=== PATIENT | female | born 1975 | race Caucasian/White ===

== ENCOUNTER 2017-02-22 19:12 | Inpatient (IN) | payer OTHER ==
[2017-02-22 19:19] VITALS: BMI 34.0
[2017-02-22] MEDS ORDERED: ONDANSETRON 4 MG/2 ML VIAL IVPUSH ONE (20:09)
[2017-02-22] MEDS ORDERED: ONDANSETRON 4 MG/2 ML VIAL ONE (20:32)
[2017-02-22 20:56] LABS: URINE APPEARANCE SLCLOUDY; URINE BILIRUBIN NEGATIVE (NEGATIVE); URINE COLOR LTYELLOW; URINE GLUCOSE (UA) 3+ (NEGATIVE); URINE KETONE NEGATIVE (NEGATIVE); URINE NITRITE NEGATIVE (NEGATIVE); URINE UROBILINOGEN NEGATIVE E.U./dl (0.2-1.0)
[2017-02-22 20:58] LABS: BASOPHIL 0.4 % (0-2.0); EOSINOPHIL 0.1 % (0-4.5); MCH 28.4 pg (25.7-33.7); MEAN CELL VOLUME 83.3 fl (80-96); NEUTROPHILS 91.2 % (42.8-82.8); PLATELET COUNT 227 K/MM3 (134-434); RDW 13.3 % (11.6-15.6); WHITE BLOOD COUNT 13.1 K/mm3 (4.0-10.0)
--- NOTE | 2017-02-22 21:11 | PDOC ---
History of Present Illness - History of Present Illness Initial Comments: 02/22/17 22:59 Patient is a 42 year old female with no significant medical hx who is presenting to the ED with one week of suprapubic pain, fever, and hematuria. The patient complains of suprapubic pain with radiation to her right flank. She has had progressive abdominal pain that is worse in the suprapubic region but has become more diffuse. She also had an episode of vomiting while in the ED. The patient is diaphoretic during interview. The patient recently was started on Macrobid by PCP for UTI. Surgical Hx: Hysterectomy PCP: Hadley Monge MD <Nany Jain - Last Filed: 02/22/17 22:59> <Lolita Corea - Last Filed: 02/23/17 02:03> - General Chief Complaint: Pain Stated Complaint: COLD SYMPTOMS Time Seen by Provider: 02/22/17 19:25 Past History <Nany Jain - Last Filed: 02/22/17 22:59> - Past Medical History Asthma: Yes - Psycho/Social/Smoking Cessation Hx Suicidal Ideation: No Smoking History: Never smoked <Lolita Corea - Last Filed: 02/23/17 02:03> - Past Medical History Allergies/Adverse Reactions: Allergies Allergy/AdvReac Type Severity Reaction Status Date / Time No Known Allergies Allergy Verified 02/22/17 19:15 Home Medications: Ambulatory Orders Nitrofurantoin Monohyd/M-Cryst [Macrobid -] 100 mg PO BID 02/22/17 Review of Systems - Review of Systems Comments:: 02/22/17 23:02 CONSTITUTIONAL: Present: fever Absent: chills, diaphoresis, generalized weakness, malaise, loss of appetite HEENT: Absent: rhinorrhea, nasal congestion, throat pain, throat swelling, difficulty swallowing, mouth swelling, ear pain, eye pain, visual changes CARDIOVASCULAR: Absent: chest pain, syncope, palpitations, irregular heart rate, lightheadedness , peripheral edema RESPIRATORY: Absent: cough, shortness of breath, dyspnea with exertion, orthopnea, wheezing, stridor, hemoptysis GASTROINTESTINAL: Present: abdominal pain, nausea, vomiting Absent: abdominal distension, diarrhea, constipation, melena, hematochezia GENITOURINARY: Present: hematuria, flank pain Absent: dysuria, frequency, urgency, hesitancy, genital pain MUSCULOSKELETAL: Absent: myalgia, arthralgia, joint swelling SKIN: Absent: rash, itching, pallor HEMATOLOGIC/IMMUNOLOGIC: Absent: easy bleeding, easy bruising, lymphadenopathy, frequent infections ENDOCRINE: Absent: unexplained weight gain, unexplained weight loss, heat intolerance, cold intolerance NEUROLOGIC: Absent: headache, focal weakness or paresthesia, dizziness, unsteady gait, seizure, mental status changes, bladder or bowel incontinence. PSYCHIATRIC: Absent: anxiety, depression, suicidal or homicidal ideation, hallucinations <Nany Jain - Last Filed: 02/22/17 22:59> *Physical Exam - Vital Signs Last Vital Signs Temp Pulse Resp BP Pulse Ox 99.2 F 110 H 20 135/74 97 02/22/17 19:15 02/22/17 19:15 02/22/17 19:15 02/22/17 19:15 02/22/17 19:15 - Physical Exam Comments: 02/22/17 23:04 GENERAL: Well developed, well nourished. Diaphoretic. Warm to touch. Awake and alert. No acute distress. HEENT: Normocephalic, atraumatic. PERRLA, EOMI. No conjunctival pallor. Sclera are non- icteric. Dry mucous membranes. Oropharynx is clear. NECK: Supple. Full ROM. No JVD. Carotid pulses 2+ and symmetric, without bruits. No thyromegaly. No lymphadenopathy. CARDIOVASCULAR: Tachycardia. No murmurs, rubs, or gallops. Distal pulses are 2+ and symmetric. PULMONARY: No evidence of respiratory distress. Lungs clear to auscultation bilaterally. No wheezing, rales or rhonchi. ABDOMINAL: Soft. Diffuse tenderness. Non-distended. No rebound or guarding. No organomegaly. Normoactive bowel sounds. MUSCULOSKELETAL: Right CVA tenderness. Normal range of motion at all joints. No bony deformities or tenderness. EXTREMITIES: No cyanosis. No clubbing. No edema. No calf tenderness. SKIN: Warm and dry. Normal capillary refill. No rashes. No jaundice. NEUROLOGICAL: Alert, awake, appropriate. Cranial nerves 2-12 intact. Normal speech. Gait is normal without ataxia. PSYCHIATRIC: Cooperative. Good eye contact. Appropriate mood and affect. <Nany Jain - Last Filed: 02/22/17 22:59> - Vital Signs Last Vital Signs Temp Pulse Resp BP Pulse Ox 99.2 F 110 H 20 135/74 97 02/22/17 19:15 02/22/17 19:15 02/22/17 19:15 02/22/17 19:15 02/22/17 19:15 <AnmolLolita Catrachita - Last Filed: 02/23/17 02:03> ED Treatment Course - LABORATORY CBC & Chemistry Diagram: 02/22/17 20:41 02/22/17 20:41 - ADDITIONAL ORDERS Additional order review: Laboratory Results 02/22/17 02/22/17 02/22/17 20:47 20:41 20:41 Sodium 139 Potassium 3.3 L Chloride 104 Carbon Dioxide 26 Anion Gap 9 BUN 12 Creatinine 0.7 Creat Clearance w eGFR > 60 Random Glucose 131 H Calcium 8.7 Total Bilirubin 1.4 H AST 22 ALT 46 Alkaline Phosphatase 89 Total Protein 7.1 Albumin 3.4 Serum , Qual Negative Urine Color Ltyellow Urine Appearance Slcloudy Urine pH 6.0 Ur Specific [place] 1.010 Urine Protein 1+ H Urine Glucose (UA) 3+ H Urine Ketones Negative Urine Blood 1+ H Urine Nitrite Negative Urine Bilirubin Negative Urine Urobilinogen Negative Ur Leukocyte Esterase 3+ H Urine RBC 6 Urine WBC 271 Ur Epithelial Cells Rare Urine Bacteria Many Urine Mucus Rare Urine HCG, Qual TNP 02/22/17 20:41 RBC 4.32 MCV 83.3 MCHC 34.0 RDW 13.3 MPV 10.0 Neutrophils % 91.2 H Lymphocytes % 4.0 L Monocytes % 4.3 Eosinophils % 0.1 Basophils % 0.4 - Medications Given in the ED: ED Medications Discontinued Medications Generic Name Dose Route Start Last Admin Trade Name Freq PRN Reason Stop Dose Admin Ondansetron HCl 4 mg 02/22/17 20:09 02/22/17 20:40 Zofran Injection IVPUSH 02/22/17 20:10 4 mg ONCE ONE Administration <Nany Jain - Last Filed: 02/22/17 22:59> - LABORATORY CBC & Chemistry Diagram: 02/22/17 20:41 02/22/17 20:41 - ADDITIONAL ORDERS Additional order review: 02/22/17 20:41 RBC 4.32 MCV 83.3 MCHC 34.0 RDW 13.3 MPV 10.0 Neutrophils % 91.2 H Lymphocytes % 4.0 L Monocytes % 4.3 Eosinophils % 0.1 Basophils % 0.4 - Medications Given in the ED: ED Medications Discontinued Medications Generic Name Dose Route Start Last Admin Trade Name Minerva PRN Reason Stop Dose Admin Ondansetron HCl 4 mg 02/22/17 20:09 02/22/17 20:40 Zofran Injection IVPUSH 02/22/17 20:10 4 mg ONCE ONE Administration <Lolita Corea - Last Filed: 02/23/17 02:03> *DC/Admit/Observation/Transfer - Attestations Scribe Attestion: 02/22/17 23:06 Documentation prepared by Nany Jain, acting as certified ophthalmic medical technician for Lolita Corea MD. <Nany Jain - Last Filed: 02/22/17 22:59> - Discharge Dispostion Admit: Yes <Lolita Corea - Last Filed: 02/23/17 02:03> Diagnosis at time of Disposition: Pyelonephritis Fever Qualifiers: Fever type: due to other condition Qualified Code(s): R50.81 - Fever presenting with conditions classified elsewhere Intractable vomiting with nausea Qualifiers: Vomiting type: unspecified Qualified Code(s): R11.2 - Nausea with vomiting, unspecified - Referrals Referrals: Hadley Monge [Primary Care Provider] -
[2017-02-22 21:17] LABS: ALBUMIN 3.4 g/dl (3.4-5.0); ANION GAP 9 (8-16); CALCIUM 8.7 mg/dL (8.5-10.1); CO2 26 mmol/L (21-32); CREATININE 0.7 mg/dL (0.55-1.02); GLUCOSE,RANDOM 131 mg/dL (74-106); SGOT/AST 22 U/L (15-37); SGPT/ALT 46 U/L (12-78)
[2017-02-22 21:19] LABS: ALK PHOS 89 U/L (45-117); BILIRUBIN,TOTAL 1.4 mg/dL (0.2-1.0); TOT PROT 7.1 g/dl (6.4-8.2)
[2017-02-22 21:22] LABS: URINE BLOOD 1+ (NEGATIVE); URINE LEUK ESTERASE 3+ (NEGATIVE); URINE PROTEIN 1+ (NEGATIVE)
[2017-02-22 21:31] LABS: URINE BACTERIA MANY /hpf (NONE SEEN); URINE MUCUS RARE; URINE RBC 6 /hpf (0-3); URINE WBC 271 /hpf (3-5)
[2017-02-22] MEDS ORDERED: LEVOFLOXACIN 500 MG IVPB 100 ML IVPB ONE ×2 (22:13→22:38)
[2017-02-22] MEDS ORDERED: SODIUM CHLORIDE 1,000 ML IV STA (22:34)
[2017-02-23] MEDS ORDERED: ONDANSETRON 4 MG/2 ML VIAL ONE (00:38)
[2017-02-23] MEDS ORDERED: ONDANSETRON 4 MG/2 ML VIAL IVPUSH ONE (01:22)
[2017-02-23] MEDS ORDERED: ACETAMINOPHEN INJECTION 100 ML IVPB ONE (01:33)
[2017-02-23] MEDS ORDERED: ACETAMINOPHEN 1000 MG/100 ML VIAL (NON FORMULARY) IVPB ONE (01:38)
--- NOTE | 2017-02-23 01:45 | HP ---
CHIEF COMPLAINT: "my back hurts" PCP: Hadley Monge MD HISTORY OF PRESENT ILLNESS: This is a 42 WO F with PMH of mild asthma, who presents due suprapubic pain, fever, and hematuria. The suprapubic blanco started 1 w ago accompanied by mild dysuria. yesterday she developed R rlank pain (dull 5/10), f/c and hematuria. She was prescribed Macrobid by her pcp but only took it for one day. She had a uti once in 2011 not associated with pyelonephritis. Today in ER she became nauseous and had one episode of NBNB vomiting. She denies chest pain, palpitations, sob, h/a, diarrhea, constipation. ER course was notable for: (1)labs (2)levaquin, zofran, tylenol, NS (3)kidney and bladder US Recent Travel:denies PAST MEDICAL HISTORY: as above PAST SURGICAL HISTORY: Hysterectomy Social History: lives at home Smoking: denies Alcohol:denies Drugs:denies Family History: HTN Allergies No Known Allergies Allergy (Verified 02/22/17 19:15) HOME MEDICATIONS: Home Medications Medication Instructions Recorded Nitrofurantoin Monohyd/M-Cryst 100 mg PO BID 02/22/17 [Macrobid -] REVIEW OF SYSTEMS CONSTITUTIONAL: Absent: fever, chills, diaphoresis, generalized weakness HEENT: Absent: rhinorrhea, nasal congestion, throat pain CARDIOVASCULAR: Absent: chest pain, syncope, palpitations, irregular heart rate, lightheadedness , peripheral edema RESPIRATORY: Absent: cough, shortness of breath, dyspnea with exertion, orthopnea, wheezing, stridor, hemoptysis GASTROINTESTINAL: Absent: abdominal distension, diarrhea, constipation, melena, hematochezia GENITOURINARY: Absent: genital pain MUSCULOSKELETAL: Absent: myalgia, arthralgia, joint swelling, back pain, neck pain SKIN: Absent: rash, itching, pallor HEMATOLOGIC/IMMUNOLOGIC: Absent: easy bleeding, easy bruising ENDOCRINE: Absent: unexplained weight gain, unexplained weight loss NEUROLOGIC: Absent: headache, focal weakness or paresthesias PSYCHIATRIC: Absent: anxiety, depression PHYSICAL EXAMINATION Vital Signs - 24 hr 02/22/17 02/23/17 19:15 01:16 Temperature 99.2 F 101.7 F H Pulse Rate 110 H Respiratory 20 Rate Blood Pressure 135/74 O2 Sat by Pulse 97 Oximetry (%) GENERAL: Awake, alert, and fully oriented, in no acute distress. HEAD: Normal with no signs of trauma. EYES: Pupils equal, round and reactive to light, extraocular movements intact, sclera anicteric, conjunctiva clear. No lid lag. EARS, NOSE, THROAT: Moist mucous membranes. NECK: supple LUNGS: Breath sounds equal, clear to auscultation bilaterally. No wheezes, and no crackles. No accessory muscle use. HEART: Regular rate and rhythm, normal S1 and S2 ABDOMEN: Soft, tender suprapibic region, mildly tender diffusely, not distended , normoactive bowel sounds, no guarding, no rebound, no masses. No hepatomegaly or splenomegaly. MUSCULOSKELETAL: +R CVA tenderness. UPPER EXTREMITIES: 2+ pulses, warm, well-perfused. No cyanosis. No clubbing. No peripheral edema. LOWER EXTREMITIES: 2+ pulses, warm, well-perfused. No calf tenderness. No peripheral edema. NEUROLOGICAL: Cranial nerves II-XII grossly intact. Normal speech. PSYCHIATRIC: Cooperative. Good eye contact. SKIN: Warm, dry Laboratory Results - last 24 hr 02/22/17 02/22/17 02/22/17 20:41 20:41 20:41 WBC 13.1 H RBC 4.32 Hgb 12.2 Hct 36.0 MCV 83.3 MCHC 34.0 RDW 13.3 Plt Count 227 MPV 10.0 Neutrophils % 91.2 H Lymphocytes % 4.0 L Monocytes % 4.3 Eosinophils % 0.1 Basophils % 0.4 Sodium 139 Potassium 3.3 L Chloride 104 Carbon Dioxide 26 Anion Gap 9 BUN 12 Creatinine 0.7 Creat Clearance w eGFR > 60 Random Glucose 131 H Calcium 8.7 Total Bilirubin 1.4 H AST 22 ALT 46 Alkaline Phosphatase 89 Total Protein 7.1 Albumin 3.4 Serum , Qual Negative Urine Color Urine Appearance Urine pH Ur Specific [place] Urine Protein Urine Glucose (UA) Urine Ketones Urine Blood Urine Nitrite Urine Bilirubin Urine Urobilinogen Ur Leukocyte Esterase Urine RBC Urine WBC Ur Epithelial Cells Urine Bacteria Urine Mucus Urine HCG, Qual 02/22/17 20:47 WBC RBC Hgb Hct MCV MCHC RDW Plt Count MPV Neutrophils % Lymphocytes % Monocytes % Eosinophils % Basophils % Sodium Potassium Chloride Carbon Dioxide Anion Gap BUN Creatinine Creat Clearance w eGFR Random Glucose Calcium Total Bilirubin AST ALT Alkaline Phosphatase Total Protein Albumin Serum , Qual Urine Color Ltyellow Urine Appearance Slcloudy Urine pH 6.0 Ur Specific [place] 1.010 Urine Protein 1+ H Urine Glucose (UA) 3+ H Urine Ketones Negative Urine Blood 1+ H Urine Nitrite Negative Urine Bilirubin Negative Urine Urobilinogen Negative Ur Leukocyte Esterase 3+ H Urine RBC 6 Urine WBC 271 Ur Epithelial Cells Rare Urine Bacteria Many Urine Mucus Rare Urine HCG, Qual TNP ASSESSMENT/PLAN: This is a 42 WO F with PMH of mild asthma, who presents due suprapubic pain, fever, and hematuria. The suprapubic blanco started 1 w ago accompanied by mild dysuria. Sepsis due to pyelonephritis -wbc 13, fever 101.7, UA consistent with uti, R flank pain -kidney, bladder us done, read p/d -levaquin in ER, will cover with rocephin -awaiting urine and blood cultures -kidney fxn wnl; IVF @ 100 -zofran PRN nausea -tylenol PRN fever/pain Asthma -stable FEN NS @ 100 replete K (hypokalemia) regular diet SCDs Dispo: adm med rene Problem List - Problem (1) Fever Code(s): R50.9 - FEVER, UNSPECIFIED Qualifiers: Fever type: due to other condition Qualified Code(s): R50.81 - Fever presenting with conditions classified elsewhere (2) Intractable vomiting with nausea Code(s): R11.2 - NAUSEA WITH VOMITING, UNSPECIFIED Qualifiers: Vomiting type: unspecified Qualified Code(s): R11.2 - Nausea with vomiting, unspecified (3) Pyelonephritis Code(s): N12 - TUBULO-INTERSTITIAL NEPHRITIS, NOT SPCF ACUTE OR CHRONIC (4) UTI (urinary tract infection) Code(s): N39.0 - URINARY TRACT INFECTION, SITE NOT SPECIFIED (5) Sepsis Code(s): A41.9 - SEPSIS, UNSPECIFIED ORGANISM Visit type - Emergency Visit Emergency Visit: Yes ED Registration Date: 02/23/17 Care time: The patient presented to the Emergency Department on the above date and was hospitalized for further evaluation of their emergent condition. - New Patient This patient is new to me today: Yes Date on this admission: 02/23/17 - Critical Care Critical Care patient: No
--- NOTE | 2017-02-23 01:46 | PN ---
<Bryon Bautista - Last Filed: 02/23/17 01:51> Teaching Attending Note ATTENDING PHYSICIAN STATEMENT I saw and evaluated the patient. I reviewed the resident's note and discussed the case with the resident. I agree with the resident's findings and plan as documented. SUBJECTIVE: The patient is a 42 year old female with no significant medical history who is presenting to the ED with suprapubic pain, fever, and hematuria for one week. The patient complains of suprapubic pain with radiation to her right flank. She has had progressive abdominal pain that is worse in the suprapubic region but has become more diffuse. She also had an episode of vomiting while in the ED. The patient recently was started on Macrobid by PCP for UTI. PCP: Hadley Monge MD OBJECTIVE: Last Vital Signs 3 Temp Pulse Resp BP Pulse Ox 101.7 F H 110 H 20 135/74 97 02/23/17 01:16 02/22/17 19:15 02/22/17 19:15 02/22/17 19:15 02/22/17 19:15 Physical Exam: GEN: NAD HEENT: NCAT, PERRL CARD: RRR, S1 S2 RESP: CTAB ABD: NT, BWS x4 EXT: - CCE Labs: CBCD 3 WBC 13.1 K/mm3 (4.0-10.0) H 02/22/17 20:41 RBC 4.32 M/mm3 (3.60-5.2) 02/22/17 20:41 Hgb 12.2 GM/dL (10.7-15.3) 02/22/17 20:41 Hct 36.0 % (32.4-45.2) 02/22/17 20:41 MCV 83.3 fl (80-96) 02/22/17 20:41 MCHC 34.0 g/dl (32.0-36.0) 02/22/17 20:41 RDW 13.3 % (11.6-15.6) 02/22/17 20:41 Plt Count 227 K/MM3 (134-434) 02/22/17 20:41 MPV 10.0 fl (7.5-11.1) 02/22/17 20:41 CMP 3 Sodium 139 mmol/L (136-145) 02/22/17 20:41 Potassium 3.3 mmol/L (3.5-5.1) L 02/22/17 20:41 Chloride 104 mmol/L (98-107) 02/22/17 20:41 Carbon Dioxide 26 mmol/L (21-32) 02/22/17 20:41 Anion Gap 9 (8-16) 02/22/17 20:41 BUN 12 mg/dL (7-18) 02/22/17 20:41 Creatinine 0.7 mg/dL (0.55-1.02) 02/22/17 20:41 Creat Clearance w eGFR > 60 (>60) 02/22/17 20:41 Calcium 8.7 mg/dL (8.5-10.1) 02/22/17 20:41 Total Bilirubin 1.4 mg/dL (0.2-1.0) H 02/22/17 20:41 AST 22 U/L (15-37) 02/22/17 20:41 ALT 46 U/L (12-78) 02/22/17 20:41 Alkaline Phosphatase 89 U/L (45-117) 02/22/17 20:41 Total Protein 7.1 g/dl (6.4-8.2) 02/22/17 20:41 Albumin 3.4 g/dl (3.4-5.0) 02/22/17 20:41 ASSESSMENT AND PLAN: The patient is a 42 year old female with no significant medical history who is presenting to the ED with abdominal pain, fever, and hematuria, found to be septic secondary to urinary tract infection. 1. Sepsis - secondary to urinary tract infection - Stat lactic acid - Culture - IVF - Ceftriaxone - Follow up urine cultures - Blood cultures - Zofran PRN nausea/vomiting - Repeat lactic acid 2. Hypokalemia - Replete 3. DVT PPX - low risk - Ambulate Admit to med surg. Documentation prepared by Bryon Bautista, acting as biomedical engineering technologist for Dr. Tao Ott MD. <Tao Ott - Last Filed: 02/23/17 05:18> Teaching Attending Note Name of Resident: Margi Dunn 1.) SEPSIS SECONDARY TO PYELONEPHRITIS - Blood/Ucx - IVF - ABX - REPEAT LACTIC A - Rest as above
[2017-02-23] MEDS ORDERED: POTASSIUM CHLORIDE TABS 20 MEQ TABLET.ER (FP) PO ONE ×3 (01:52→11:25)
[2017-02-23] MEDS ORDERED: ONDANSETRON 4 MG TABLET PO PRN (01:56)
[2017-02-23] MEDS: SODIUM CHLORIDE 1,000 ML IV SCH ×3 (02:09→22:06)
[2017-02-23 08:01] LABS: MCH 28.9 pg (25.7-33.7); MCHC 34.5 g/dl (32.0-36.0); MEAN CELL VOLUME 83.7 fl (80-96); MEAN PLT VOLUME 9.4 fl (7.5-11.1); PLATELET COUNT 175 K/MM3 (134-434); RDW 13.4 % (11.6-15.6); WHITE BLOOD COUNT 15.8 K/mm3 (4.0-10.0)
[2017-02-23] MEDS: cefTRIAXone 1 GM/50 ML BAG (PRE-DOCKED) IVPB SCH (09:25)
--- NOTE | 2017-02-23 11:27 | HP ---
CHIEF COMPLAINT: PCP: HISTORY OF PRESENT ILLNESS: ER course was notable for: (1) (2) (3) Recent Travel: PAST MEDICAL HISTORY: PAST SURGICAL HISTORY: Social History: Smoking: Alcohol: Drugs: Family History: Allergies No Known Allergies Allergy (Verified 02/22/17 19:15) HOME MEDICATIONS: Home Medications Medication Instructions Recorded Nitrofurantoin Monohyd/M-Cryst 100 mg PO BID 02/22/17 [Macrobid -] REVIEW OF SYSTEMS CONSTITUTIONAL: Absent: fever, chills, diaphoresis, generalized weakness, malaise, loss of appetite, weight change HEENT: Absent: rhinorrhea, nasal congestion, throat pain, throat swelling, difficulty swallowing, mouth swelling, ear pain, eye pain, visual changes CARDIOVASCULAR: Absent: chest pain, syncope, palpitations, irregular heart rate, lightheadedness , peripheral edema RESPIRATORY: Absent: cough, shortness of breath, dyspnea with exertion, orthopnea, wheezing, stridor, hemoptysis GASTROINTESTINAL: Absent: abdominal pain, abdominal distension, nausea, vomiting, diarrhea, constipation, melena, hematochezia GENITOURINARY: Absent: dysuria, frequency, urgency, hesitancy, hematuria, flank pain, genital pain MUSCULOSKELETAL: Absent: myalgia, arthralgia, joint swelling, back pain, neck pain SKIN: Absent: rash, itching, pallor HEMATOLOGIC/IMMUNOLOGIC: Absent: easy bleeding, easy bruising, lymphadenopathy, frequent infections ENDOCRINE: Absent: unexplained weight gain, unexplained weight loss, heat intolerance, cold intolerance NEUROLOGIC: Absent: headache, focal weakness or paresthesias, dizziness, unsteady gait, seizure, mental status changes, bladder or bowel incontinence PSYCHIATRIC: Absent: anxiety, depression, suicidal or homicidal ideation, hallucinations. PHYSICAL EXAMINATION Vital Signs - 24 hr 02/23/17 02/23/17 02/23/17 03:35 04:15 06:07 Temperature 99.0 F 98.3 F 99.0 F Pulse Rate 96 H 96 H Pulse Rate [ 104 H Right] Respiratory 16 20 20 Rate Blood Pressure 103/63 102/52 Blood Pressure 110/52 [Right] O2 Sat by Pulse 98 95 Oximetry (%) 02/23/17 10:00 Temperature 97.4 F L Pulse Rate 94 H Pulse Rate [ Right] Respiratory 20 Rate Blood Pressure 108/61 Blood Pressure [Right] O2 Sat by Pulse Oximetry (%) GENERAL: Awake, alert, and fully oriented, in no acute distress. HEAD: Normal with no signs of trauma. EYES: Pupils equal, round and reactive to light, extraocular movements intact, sclera anicteric, conjunctiva clear. No lid lag. EARS, NOSE, THROAT: Ears normal, nares patent, oropharynx clear without exudates. Moist mucous membranes. NECK: Normal range of motion, supple without lymphadenopathy, JVD, or masses. LUNGS: Breath sounds equal, clear to auscultation bilaterally. No wheezes, and no crackles. No accessory muscle use. HEART: Regular rate and rhythm, normal S1 and S2 without murmur, rub or gallop. ABDOMEN: Soft, nontender, not distended, normoactive bowel sounds, no guarding, no rebound, no masses. No hepatomegaly or splenomegaly. MUSCULOSKELETAL: Normal range of motion at all joints. No bony deformities or tenderness. No CVA tenderness. UPPER EXTREMITIES: 2+ pulses, warm, well-perfused. No cyanosis. No clubbing. No peripheral edema. LOWER EXTREMITIES: 2+ pulses, warm, well-perfused. No calf tenderness. No peripheral edema. NEUROLOGICAL: Cranial nerves II-XII intact. Normal speech. Normal gait. PSYCHIATRIC: Cooperative. Good eye contact. Appropriate mood and affect. SKIN: Warm, dry, normal turgor, no rashes or lesions noted, normal capillary refill. Laboratory Results - last 24 hr 02/23/17 02/23/17 02/23/17 07:00 07:00 07:00 WBC 15.8 H RBC 3.92 Hgb 11.3 Hct 32.8 MCV 83.7 MCHC 34.5 RDW 13.4 Plt Count 175 D MPV 9.4 Potassium 3.3 L Lactic Acid Magnesium 2.2 02/23/17 07:00 WBC RBC Hgb Hct MCV MCHC RDW Plt Count MPV Potassium Lactic Acid 0.9 Magnesium ASSESSMENT/PLAN:
--- NOTE | 2017-02-23 12:18 | PN ---
Physical Exam: SUBJECTIVE: Patient seen and examined at bedside. Son at bedside. OBJECTIVE: Vital Signs Period Temp Pulse Resp BP Sys/[place] Pulse Ox Last 24 Hr 97.4 F-99.0 F 94-104 16-20 102-110/52-63 95-98 GENERAL: The patient is awake, alert, and fully oriented, in no acute distress. HEAD: Normal with no signs of trauma. EYES: PERRL, extraocular movements intact, sclera anicteric, conjunctiva clear. No ptosis. ENT: Ears normal, nares patent, oropharynx clear without exudates, moist mucous membranes. NECK: Trachea midline, full range of motion, supple. LUNGS: Breath sounds equal, clear to auscultation bilaterally, no wheezes, no crackles, no accessory muscle use. HEART: Regular rate and rhythm, S1, S2 without murmur, rub or gallop. ABDOMEN: Soft, nontender, nondistended, normoactive bowel sounds, no guarding, no rebound, no hepatosplenomegaly, no masses. +Right CVAT. EXTREMITIES: 2+ pulses, warm, well-perfused, no edema. NEUROLOGICAL: Cranial nerves II through XII grossly intact. Normal speech, gait not observed. PSYCH: Normal mood, normal affect. SKIN: Warm, dry, normal turgor, no rashes or lesions noted Laboratory Results - last 24 hr 3 02/23/17 02/23/17 02/23/17 07:00 07:00 07:00 WBC 15.8 H RBC 3.92 Hgb 11.3 Hct 32.8 MCV 83.7 MCHC 34.5 RDW 13.4 Plt Count 175 D MPV 9.4 Potassium 3.3 L Lactic Acid Magnesium 2.2 3 02/23/17 07:00 WBC RBC Hgb Hct MCV MCHC RDW Plt Count MPV Potassium Lactic Acid 0.9 Magnesium Active Medications 3 Generic Name Dose Route Start Last Admin Trade Name Freq PRN Reason Stop Dose Admin Ceftriaxone Sodium 1 gm 02/23/17 10:00 02/23/17 09:25 Rocephin 1gm Ivpb (Pre-Docked) IVPB 1 gm DAILY REDDY Administration Protocol Sodium Chloride 1,000 mls @ 100 mls/hr 02/23/17 02:00 02/23/17 07:31 Normal Saline - IV 100 mls/hr ASDIR REDDY Administration Ondansetron HCl 4 mg 02/23/17 01:56 Zofran - PO Q4H PRN NAUSEA Imaging: Renal U/S as read by MD Clark: Both kidneys appear unremarkable. Normal appearing moderately distended urinary bladder with bilateral uretal jets identified and without evidence of PVR. ASSESSMENT/PLAN: A: This is a 42 yo woman with PMH asthma who presents with nausea, vomiting and right flank pain. Meets SIRS with leukocytosis, tachycardia and febrile. UA notable for WBC 271 and 3+ leuk esterase. P: 1. Urosepsis - trend WBC - continue rocephin - f/u urine cx - lactate cleared 2.4-> 0.9 - renal u/s as above 2. Fever - trend fever curve - tylenol PRN - continue rocephin - NS@100 3. Leukocytosis - trend WBC - likely from urinary source given UA 4. Nausea and vomiting - Zofran prn - NS@100 5. F/E/N - NS@100 - regular diet as tolerated - replete K as 3.3 after 20mEq 6. PPX - OOB Dispo: This patient requires inpatient treatment of her acute medical condition. Visit type - Emergency Visit Emergency Visit: Yes ED Registration Date: 02/23/17 Care time: The patient presented to the Emergency Department on the above date and was hospitalized for further evaluation of their emergent condition. - New Patient This patient is new to me today: Yes Date on this admission: 02/23/17 - Critical Care Critical Care patient: No
[2017-02-23] MEDS ORDERED: ACETAMINOPHEN 500 MG TABLET (FP) PO ONE (18:15)
[2017-02-24] MEDS: ACETAMINOPHEN 325 MG TABLET (FP) PO PRN (02:21)
[2017-02-24] MEDS: SODIUM CHLORIDE 1,000 ML IV SCH ×4 (02:22→21:35)
[2017-02-24 07:46] LABS: BASOPHIL 0.2 % (0-2.0); EOSINOPHIL 0.8 % (0-4.5); MCH 28.8 pg (25.7-33.7); MCHC 34.2 g/dl (32.0-36.0); MEAN CELL VOLUME 84.2 fl (80-96); MEAN PLT VOLUME 9.9 fl (7.5-11.1); NEUTROPHILS 76.5 % (42.8-82.8); PLATELET COUNT 182 K/MM3 (134-434); RDW 13.6 % (11.6-15.6); WHITE BLOOD COUNT 14.2 K/mm3 (4.0-10.0)
[2017-02-24 08:37] LABS: CALCIUM 8.3 mg/dL (8.5-10.1); COCKROFT - GAULT 159.766; CREATININE 0.5 mg/dL (0.55-1.02)
--- NOTE | 2017-02-24 08:43 | PN ---
Physical Exam: SUBJECTIVE: Patient seen and examined. States she had right flank pain last night. Denies any fever, chills nausea or vomiting. OBJECTIVE: +right flank pain/tenderness, tylenol giving minimal relief, will add Ultram Requested urine culture, none has been sent to date WBC 13.1>15.8>14.2 No fevers overnight Tmax 101.7F Vital Signs Period Temp Pulse Resp BP Sys/[place] Pulse Ox Last 24 Hr 97.4 F-100.1 F 76-94 20-20 108-127/61-81 95-97 GENERAL: The patient is awake, alert, and fully oriented, in no acute distress. HEAD: Normal with no signs of trauma. EYES: PERRL, extraocular movements intact, sclera anicteric, conjunctiva clear. No ptosis. ENT: Ears normal, nares patent, oropharynx clear without exudates, moist mucous membranes. NECK: Trachea midline, full range of motion, supple. LUNGS: Breath sounds equal, clear to auscultation bilaterally, no wheezes, no crackles, no accessory muscle use. HEART: Regular rate and rhythm ABDOMEN: Soft, nontender, nondistended, +right flank pain/tenderness EXTREMITIES: 2+ pulses, warm, well-perfused, no edema. NEUROLOGICAL: Cranial nerves II through XII grossly intact. Normal speech, gait not observed. PSYCH: Normal mood, normal affect. SKIN: Warm, dry, normal turgor, no rashes or lesions noted Laboratory Results - last 24 hr 02/23/17 02/24/17 02/24/17 07:00 06:05 06:05 WBC 14.2 H RBC 3.91 Hgb 11.2 Hct 32.9 MCV 84.2 MCHC 34.2 RDW 13.6 Plt Count 182 MPV 9.9 Neutrophils % 76.5 Lymphocytes % 11.9 D Monocytes % 10.6 H D Eosinophils % 0.8 D Basophils % 0.2 Sodium 143 Potassium 3.6 Chloride 112 H Carbon Dioxide 23 Anion Gap 8 BUN 6 L D Creatinine 0.5 L D Random Glucose 108 H Lactic Acid 0.9 Calcium 8.3 L Active Medications Generic Name Dose Route Start Last Admin Trade Name Freq PRN Reason Stop Dose Admin Acetaminophen 650 mg 02/24/17 00:00 02/24/17 02:21 Tylenol - PO 650 mg Q4H PRN Administration FEVER OR PAIN Ceftriaxone Sodium 1 gm 02/23/17 10:00 02/23/17 09:25 Rocephin 1gm Ivpb (Pre-Docked) IVPB 1 gm DAILY REDDY Administration Protocol Sodium Chloride 1,000 mls @ 100 mls/hr 02/23/17 02:00 02/24/17 02:22 Normal Saline - IV Not Given ASDIR REDDY Ondansetron HCl 4 mg 02/23/17 01:56 Zofran - PO Q4H PRN NAUSEA ASSESSMENT/PLAN: Patient is a 42 year old female with significant past medical history of asthma. She was admitted on 02/23/2017 with nausea vomiting and right sided flank pain. On admission. As per Ed notes, patient presented with 1 week of suprapubic pain, fever, and hematuria. On admission patient stated that suprapubic pain radiates to her right flank. She also had progressive abdominal pain that is worse in the suprapubic region but has become more diffuse. She also had an episode of vomiting while in the ED. Her PCP started her on Macrobid for UTI. On assessment, patient continues to complain of general malaise, and right sided flank pain. She states Tylenol is not relieving her discomfort. Imaging: Renal U/S: Both kidneys appear unremarkable. Normal appearing moderately distended urinary bladder with bilateral uretal jets identified and without evidence of PVR. ID: Sepsis secondary to UTI -acute Assessment/Plan: On admission WBC 13.1, Fever 101.F, tachycardia @110 with lactic acidosis WBC 13.1>15.8>14.2, fever curve improving, tachycardia resolving, lactic acidosis resolved WBC not downtrending and she is still having right flank pain after day #3 of antibiotics On IVF of NS @100 cc/hr On Ceftriaxone 1 gram (day 2), since WBC is not improving, will increase to 2 grams and monitor +right flank pain/tenderness, tylenol giving minimal relief, will add Ultram Requested urine culture, none has been sent to date Blood culture negative to date Tmax 101.7F on 02/23 Monitor fever curve, vitals Pulmonary: Asthma - chronic/not in acute exacerbation Assessment/Plan: Monitor respiratory status, tolerating room air Albuterol as needed PRN F.E.N. Fluids: NS @100cc/hr Electrolytes: within normal limits Nutrition: regular diet Disposition: This patient requires inpatient treatment of her acute medical condition. Full code. Visit type - Emergency Visit Emergency Visit: Yes ED Registration Date: 02/23/17 Care time: The patient presented to the Emergency Department on the above date and was hospitalized for further evaluation of their emergent condition. - New Patient This patient is new to me today: Yes Date on this admission: 02/24/17 - Critical Care Critical Care patient: No - Discharge Referral Referred to [facility] Med P.C.: No
[2017-02-24] MEDS ORDERED: traMADol HCL 50 MG TABLET PO PRN (08:52)
[2017-02-24] MEDS: cefTRIAXone 1 GM/50 ML BAG (PRE-DOCKED) IVPB SCH (09:48)
[2017-02-24] MEDS ORDERED: CEFTRIAXONE 50 ML IVPB ONE (14:00)
--- NOTE | 2017-02-24 15:33 | CONSULT ---
Consult Consult Specialty:: infectious diseases Reason for Consultation:: pyelo - History of Present Illness Chief Complaint: pain in the back and fever History of Present Illness: 42 WO F with PMH of mild asthma, who presents due suprapubic pain, fever, and hematuria. The suprapubic blanco started 1 w ago accompanied by mild dysuria. yesterday she developed R rlank pain hematuria. PCP evalauted the patient and gave her macrobid patient c/o of nausea and vomiting and the pain in the rt flank still is pretty bad according to her patient looks to be in discomfort - History Source History Provided By: Patient Limitations to Obtaining History: Language Barrier - Past Medical History ...: No - Alcohol/Substance Use Hx Alcohol Use: No - Smoking History Smoking history: Never smoked Have you smoked in the past 12 months: No Home Medications - Allergies Allergies/Adverse Reactions: Allergies Allergy/AdvReac Type Severity Reaction Status Date / Time No Known Allergies Allergy Verified 02/22/17 19:15 - Home Medications Home Medications: Ambulatory Orders Nitrofurantoin Monohyd/M-Cryst [Macrobid -] 100 mg PO BID 02/22/17 Review of Systems - Review of Systems Constitutional: reports: Fever Eyes: reports: No Symptoms HENT: reports: No Symptoms Neck: reports: No Symptoms Cardiovascular: reports: No Symptoms Respiratory: reports: No Symptoms Gastrointestinal: reports: Nausea, Vomiting Genitourinary: reports: Flank Pain (right) Musculoskeletal: reports: No Symptoms Integumentary: reports: No Symptoms Neurological: reports: No Symptoms Endocrine: reports: No Symptoms Hematology/Lymphatic: reports: No Symptoms Psychiatric: reports: No Symptoms Physical Exam Vital Signs: Vital Signs Temperature 98.3 F 02/24/17 10:00 Pulse Rate 83 02/24/17 10:00 Respiratory Rate 16 02/24/17 10:00 Blood Pressure 126/73 02/24/17 10:00 O2 Sat by Pulse Oximetry (%) 97 02/23/17 21:00 Constitutional: Yes: Well Nourished, Obese Eyes: Yes: Conjunctiva Clear Neck: Yes: Supple Cardiovascular: Yes: Regular Rate and Rhythm Respiratory: Yes: Regular, CTA Bilaterally Gastrointestinal: Yes: Normal Bowel Sounds, Soft Renal/: Yes: CVA Tenderness - Right. No: CVA Tenderness - Left Musculoskeletal: Yes: WNL Extremities: Yes: WNL Neurological: Yes: Alert, Oriented Psychiatric: Yes: Alert, Oriented Labs: CBC, BMP 02/24/17 06:05 02/24/17 06:05 Imaging - Results Ultrasound: Report Reviewed, Image Reviewed Assessment/Plan clinically examining and looking at the history and with history of the pain and hematuria i have no doubt patient is having renal colic and pyelo inspite of the ultrasound being normal i am worried patient might have a passed a stone or might be having one Problem (1) Fever Code(s): R50.9 - FEVER, UNSPECIFIED Qualifiers: Fever type: due to other condition Qualified Code(s): R50.81 - Fever presenting with conditions classified elsewhere (2) Intractable vomiting with nausea Code(s): R11.2 - NAUSEA WITH VOMITING, UNSPECIFIED Qualifiers: Vomiting type: unspecified Qualified Code(s): R11.2 - Nausea with vomiting, unspecified (3) Pyelonephritis Code(s): N12 - TUBULO-INTERSTITIAL NEPHRITIS, NOT SPCF ACUTE OR CHRONIC (4) UTI (urinary tract infection) Code(s): N39.0 - URINARY TRACT INFECTION, SITE NOT SPECIFIED (5) Sepsis Code(s): A41.9 - SEPSIS, UNSPECIFIED ORGANISM 6) pyelo plan ct scan of abd increase iv fluids monitor patient rest as per primary
[2017-02-24] MEDS: PIPERACILLIN/TAZOB 3.375 GM 50 ML IVPB SCH ×2 (16:02→17:59)
[2017-02-25] MEDS: PIPERACILLIN/TAZOB 3.375 GM 50 ML IVPB SCH ×3 (02:02→18:09)
[2017-02-25] MEDS: ACETAMINOPHEN 325 MG TABLET (FP) PO PRN ×3 (02:05→20:59)
[2017-02-25] MEDS: SODIUM CHLORIDE 1,000 ML IV SCH ×3 (05:00→18:09)
[2017-02-25 07:21] LABS: BASOPHIL 0.2 % (0-2.0); EOSINOPHIL 1.2 % (0-4.5); MCH 29.1 pg (25.7-33.7); MEAN CELL VOLUME 83.1 fl (80-96); MEAN PLT VOLUME 9.3 fl (7.5-11.1); NEUTROPHILS 65.8 % (42.8-82.8); PLATELET COUNT 198 K/MM3 (134-434); RDW 13.4 % (11.6-15.6); WHITE BLOOD COUNT 9.4 K/mm3 (4.0-10.0)
--- NOTE | 2017-02-25 08:13 | PN ---
Physical Exam: SUBJECTIVE: Patient seen and examined. States she had some pain overnight relived with Tylenol. OBJECTIVE: Started on Zosyn on 02/24 for urosepsis by ID (previously on Ceftriaxone) WBC 9.4, remains afebrile Urine culture pending Patient states her right flank pain is improvin/10 CT of the abdomen and pelvis with mildly enlarged right kidney with perinephric and periureteral stranding suggestive of bilateral arthritis. Vital Signs Period Temp Pulse Resp BP Sys/[place] Pulse Ox Last 24 Hr 98.3 F-99.2 F 69-90 16-20 110-133/62-82 97 GENERAL: The patient is awake, alert, and fully oriented, in no acute distress. HEAD: Normal with no signs of trauma. EYES: PERRL, extraocular movements intact, sclera anicteric, conjunctiva clear. No ptosis. ENT: Ears normal, nares patent, oropharynx clear without exudates, moist mucous membranes. NECK: Trachea midline, full range of motion, supple. LUNGS: Breath sounds equal, clear to auscultation bilaterally, no wheezes, no crackles, no accessory muscle use. HEART: Regular rate and rhythm ABDOMEN: Soft, nontender, nondistended, +right flank pain/tenderness EXTREMITIES: 2+ pulses, warm, well-perfused, no edema. NEUROLOGICAL: Cranial nerves II through XII grossly intact. Normal speech, gait not observed. PSYCH: Normal mood, normal affect. SKIN: Warm, dry, normal turgor, no rashes or lesions noted Laboratory Results - last 24 hr 02/24/17 02/25/17 06:05 06:00 WBC 9.4 D RBC 3.81 Hgb 11.1 Hct 31.7 L MCV 83.1 MCHC 35.0 RDW 13.4 Plt Count 198 MPV 9.3 Neutrophils % 65.8 Lymphocytes % 22.3 D Monocytes % 10.5 H Eosinophils % 1.2 Basophils % 0.2 Sodium 143 Potassium 3.6 Chloride 112 H Carbon Dioxide 23 Anion Gap 8 BUN 6 L D Creatinine 0.5 L D Random Glucose 108 H Calcium 8.3 L Active Medications Generic Name Dose Route Start Last Admin Trade Name Freq PRN Reason Stop Dose Admin Acetaminophen 650 mg 02/24/17 00:00 02/25/17 02:05 Tylenol - PO 650 mg Q4H PRN Administration FEVER OR PAIN Piperacillin Sod/Tazobactam Sod 50 mls @ 100 mls/hr 02/24/17 15:30 02/25/17 02: 02 Zosyn 3.375gm Ivpb (Pre-Docked) IVPB 100 mls/hr Q8H-IV REDDY Administration Protocol Sodium Chloride 1,000 mls @ 150 mls/hr 02/24/17 15:39 02/25/17 05:00 Normal Saline - IV 150 mls/hr ASDIR REDDY Administration Ondansetron HCl 4 mg 02/23/17 01:56 Zofran - PO Q4H PRN NAUSEA Tramadol HCl 50 mg 02/24/17 08:52 Ultram - PO Q8H PRN PAIN ASSESSMENT/PLAN: Patient is a 42 year old female with significant past medical history of asthma. She was admitted on 02/23/2017 with nausea vomiting and right sided flank pain. On admission. As per Ed notes, patient presented with 1 week of suprapubic pain, fever, and hematuria. On admission patient stated that suprapubic pain radiates to her right flank. She also had progressive abdominal pain that is worse in the suprapubic region but has become more diffuse. She also had an episode of vomiting while in the ED. Her PCP started her on Macrobid for UTI but patient only took once dose before coming in to the ER. Imaging: Renal U/S 02/23/2017: Both kidneys appear unremarkable. Normal appearing moderately distended urinary bladder with bilateral uretal jets identified and without evidence of PVR. CT of the abdomen and pelvis with oral contrast 02/25/2017: Mildly enlarged right kidney with perinephric and periureteral stranding suggestive of bilateral arthritis in the right clinical setting. No obstructing stones nor hydronephrosis or hydroureter seen. No stones seen in the urinary bladder. The bladder is non distended limiting its evaluation. ID: Sepsis secondary to UTI - improving Assessment/Plan: On admission WBC 13.1, Fever 101.F, tachycardia @110 with lactic acidosis WBC 13.1>15.8>14.2>9.4 No fevers overnight, no tachycardia, lactic acidosis has resolved Still still having right flank pain but now mild and relieved with Tylenol On IVF of NS @125 cc/hr Started on Zosyn by ID on 02/24 Urine culture pending Blood culture negative to date Tmax 101.7F on 02/23, afebrile since CT scan shows mild enlarged right kidney with perinephric and perireteral stranding Renal consulted Pulmonary: Asthma - chronic/not in acute exacerbation Assessment/Plan: Monitor respiratory status, tolerating room air Albuterol as needed PRN F.E.N. Fluids: NS @150cc/hr Electrolytes: hypoKalemia repleted Nutrition: regular diet Prophylaxis: GI: deferred DVT: SCDs bilaterally, no AC as pt had recent hematuria Disposition: Discharge once cleared by ID and renal. Full code. Visit type - Emergency Visit Emergency Visit: Yes ED Registration Date: 02/23/17 Care time: The patient presented to the Emergency Department on the above date and was hospitalized for further evaluation of their emergent condition. - New Patient This patient is new to me today: No - Critical Care Critical Care patient: No - Discharge Referral Referred to [facility] Med P.C.: No
[2017-02-25] MEDS ORDERED: POTASSIUM CHLORIDE ORAL LIQUID 20 MEQ/15 ML PO ONE (09:00)
[2017-02-25 09:15] LABS: ALBUMIN 2.4 g/dl (3.4-5.0); ALK PHOS 83 U/L (45-117); ANION GAP 12 (8-16); BILIRUBIN,TOTAL 0.4 mg/dL (0.2-1.0); CO2 21 mmol/L (21-32); CREATININE 0.6 mg/dL (0.55-1.02); GLUCOSE,RANDOM 103 mg/dL (74-106); SGOT/AST 13 U/L (15-37); SGPT/ALT 30 U/L (12-78); TOT PROT 5.5 g/dl (6.4-8.2)
--- NOTE | 2017-02-25 13:09 | PN ---
Progress Note, Physician History of Present Illness: patient feels much better pain still present in the flank rt but improving - Current Medication List Current Medications: Active Medications Acetaminophen (Tylenol -) 650 mg PO Q4H PRN PRN Reason: FEVER OR PAIN Last Admin: 02/25/17 09:44 Dose: 650 mg Piperacillin Sod/Tazobactam Sod (Zosyn 3.375gm Ivpb (Pre-Docked)) 50 mls @ 100 mls/hr IVPB Q8H-IV REDDY PRN Reason: Protocol Last Admin: 02/25/17 09:40 Dose: 100 mls/hr Sodium Chloride (Normal Saline -) 1,000 mls @ 150 mls/hr IV ASDIR REDDY Last Admin: 02/25/17 05:00 Dose: 150 mls/hr Ondansetron HCl (Zofran -) 4 mg PO Q4H PRN PRN Reason: NAUSEA Last Admin: 02/25/17 09:45 Dose: 4 mg Tramadol HCl (Ultram -) 50 mg PO Q8H PRN PRN Reason: PAIN - Objective Vital Signs: Vital Signs Temperature 97.9 F 02/25/17 09:39 Pulse Rate 67 02/25/17 09:39 Respiratory Rate 18 02/25/17 09:39 Blood Pressure 121/70 02/25/17 09:39 O2 Sat by Pulse Oximetry (%) 96 02/25/17 09:00 Constitutional: Yes: No Distress, Calm Cardiovascular: Yes: Regular Rate and Rhythm Respiratory: Yes: Regular, CTA Bilaterally Gastrointestinal: Yes: Normal Bowel Sounds, Soft Genitourinary: Yes: CVA Tenderness - Right. No: CVA Tenderness - Left Musculoskeletal: Yes: WNL Extremities: Yes: WNL Neurological: Yes: Alert, Oriented Psychiatric: Yes: Alert, Oriented Labs: CBC, BMP 02/25/17 06:00 02/25/17 06:00 - ....Imaging Cat Scan: Report Reviewed, Image Reviewed Assessment/Plan clinically examining and looking at the history and with history of the pain and hematuria i have no doubt patient is having renal colic and pyelo inspite of the ultrasound being normal i am worried patient might have a passed a stone or might be having one Problem (1) Fever Code(s): R50.9 - FEVER, UNSPECIFIED Qualifiers: Fever type: due to other condition Qualified Code(s): R50.81 - Fever presenting with conditions classified elsewhere (2) Intractable vomiting with nausea Code(s): R11.2 - NAUSEA WITH VOMITING, UNSPECIFIED Qualifiers: Vomiting type: unspecified Qualified Code(s): R11.2 - Nausea with vomiting, unspecified (3) Pyelonephritis Code(s): N12 - TUBULO-INTERSTITIAL NEPHRITIS, NOT SPCF ACUTE OR CHRONIC (4) UTI (urinary tract infection) Code(s): N39.0 - URINARY TRACT INFECTION, SITE NOT SPECIFIED (5) Sepsis Code(s): A41.9 - SEPSIS, UNSPECIFIED ORGANISM 6) pyelo of the rt kidney plan continue iv fluids continue iv abx continue wbc monitoring rest as per primary team
[2017-02-25 14:12] LABS: URINE APPEARANCE CLEAR; URINE BILIRUBIN NEGATIVE (NEGATIVE); URINE COLOR COLORLESS; URINE GLUCOSE (UA) NEGATIVE (NEGATIVE); URINE KETONE NEGATIVE (NEGATIVE); URINE LEUK ESTERASE NEGATIVE (NEGATIVE); URINE NITRITE NEGATIVE (NEGATIVE); URINE PROTEIN NEGATIVE (NEGATIVE); URINE UROBILINOGEN NEGATIVE E.U./dl (0.2-1.0)
[2017-02-25 14:13] LABS: URINE BLOOD 1+ (NEGATIVE)
[2017-02-25 14:23] LABS: URINE RBC <1 /hpf (0-3); URINE WBC 1 /hpf (3-5)
--- NOTE | 2017-02-25 14:39 | PN ---
Physical Exam: SUBJECTIVE: Patient seen and examined. 42 y/o f with pyelonephritis. patient lying in bed. complain of burning micturation states pain has decreased. OBJECTIVE: Vital Signs Period Temp Pulse Resp BP Sys/[place] Pulse Ox Last 24 Hr 97.9 F-99.2 F 67-90 18-20 110-133/62-82 96 GENERAL: The patient is awake, alert, and fully oriented, in no acute distress. HEAD: Normal with no signs of trauma. LUNGS: Breath sounds equal, clear to auscultation bilaterally, HEART:s1s2 normal ABDOMEN: Soft, nontender, nondistended, normoactive bowel sounds, right renal van tenderness present. EXTREMITIES: 2+ pulses, warm, no pedal edema. Laboratory Results - last 24 hr 02/25/17 02/25/17 02/25/17 06:00 06:00 13:45 WBC 9.4 D RBC 3.81 Hgb 11.1 Hct 31.7 L MCV 83.1 MCHC 35.0 RDW 13.4 Plt Count 198 MPV 9.3 Neutrophils % 65.8 Lymphocytes % 22.3 D Monocytes % 10.5 H Eosinophils % 1.2 Basophils % 0.2 Sodium 145 Potassium 3.4 L Chloride 112 H Carbon Dioxide 21 Anion Gap 12 BUN 7 Creatinine 0.6 Creat Clearance w eGFR > 60 Random Glucose 103 Calcium 8.0 L Total Bilirubin 0.4 D AST 13 L D ALT 30 D Alkaline Phosphatase 83 Total Protein 5.5 L D Albumin 2.4 L D Urine Color Colorless Urine Appearance Clear Urine pH 6.0 Urine Protein Negative Urine Glucose (UA) Negative Urine Ketones Negative Urine Blood 1+ H Urine Nitrite Negative Urine Bilirubin Negative Urine Urobilinogen Negative Ur Leukocyte Esterase Negative Urine RBC <1 Urine WBC 1 Ur Epithelial Cells Rare Active Medications Generic Name Dose Route Start Last Admin Trade Name Freq PRN Reason Stop Dose Admin Acetaminophen 650 mg 02/24/17 00:00 02/25/17 09:44 Tylenol - PO 650 mg Q4H PRN Administration FEVER OR PAIN Piperacillin Sod/Tazobactam Sod 50 mls @ 100 mls/hr 02/24/17 15:30 02/25/17 09: 40 Zosyn 3.375gm Ivpb (Pre-Docked) IVPB 100 mls/hr Q8H-IV REDDY Administration Protocol Sodium Chloride 1,000 mls @ 150 mls/hr 02/24/17 15:39 02/25/17 13:21 Normal Saline - IV 150 mls/hr ASDIR REDDY Administration Ondansetron HCl 4 mg 02/23/17 01:56 02/25/17 09:45 Zofran - PO 4 mg Q4H PRN Administration NAUSEA Tramadol HCl 50 mg 02/24/17 08:52 Ultram - PO Q8H PRN PAIN ASSESSMENT/PLAN: Patient could have renal stone which has passed now and has caused pyeloniphritis with rbc and protein in urine. Pararenal and periuretral stranding could be from pyelonephritis. Pyelonephritis UTI Intractable nausea and vomiting. Plan Continue with IV fluid Repeat UA and protein: cr ratio Antibiotics as per ID
[2017-02-25 14:58] LABS: URINE CREATININE 17.8 mg/dL (20-320)
--- NOTE | 2017-02-25 15:09 | CONSULT ---
Consultation: REQUESTING PROVIDER: CONSULT REQUEST: We have been asked to medically evaluate this patient for ( nephro). HISTORY OF PRESENT ILLNESS: History taken from previous notes and from patient. This is a 42 WO F with PMH of mild asthma, who presents due suprapubic pain, fever, and hematuria. The suprapubic blanco started 1 w ago accompanied by mild dysuria. yesterday she developed R rlank pain (dull 5/10), f/c and hematuria. She was prescribed Macrobid by her pcp but only took it for one day. She had a uti once in 2011 not associated with pyelonephritis. Today in ER she became nauseous and had one episode of NBNB vomiting. She denies chest pain, palpitations, sob, h/a, diarrhea, constipation. 42 y/o f with pyelonephritis. patient lying in bed. complain of burning micturation states pain has decreased in her back. OBJECTIVE: Vital Signs Period Temp Pulse Resp BP Sys/[place] Pulse Ox Last 24 Hr 97.9 F-99.2 F 67-90 18-20 110-133/62-82 96 GENERAL: The patient is awake, alert, and fully oriented, in no acute distress. HEAD: Normal with no signs of trauma. LUNGS: Breath sounds equal, clear to auscultation bilaterally, HEART:s1s2 normal ABDOMEN: Soft, nontender, nondistended, normoactive bowel sounds, right renal van tenderness present. EXTREMITIES: 2+ pulses, warm, no pedal edema. Laboratory Results - last 24 hr 02/25/17 02/25/17 02/25/17 06:00 06:00 13:45 WBC 9.4 D RBC 3.81 Hgb 11.1 Hct 31.7 L MCV 83.1 MCHC 35.0 RDW 13.4 Plt Count 198 MPV 9.3 Neutrophils % 65.8 Lymphocytes % 22.3 D Monocytes % 10.5 H Eosinophils % 1.2 Basophils % 0.2 Sodium 145 Potassium 3.4 L Chloride 112 H Carbon Dioxide 21 Anion Gap 12 BUN 7 Creatinine 0.6 Creat Clearance w eGFR > 60 Random Glucose 103 Calcium 8.0 L Total Bilirubin 0.4 D AST 13 L D ALT 30 D Alkaline Phosphatase 83 Total Protein 5.5 L D Albumin 2.4 L D Urine Color Colorless Urine Appearance Clear Urine pH 6.0 Urine Protein Negative Urine Glucose (UA) Negative Urine Ketones Negative Urine Blood 1+ H Urine Nitrite Negative Urine Bilirubin Negative Urine Urobilinogen Negative Ur Leukocyte Esterase Negative Urine RBC <1 Urine WBC 1 Ur Epithelial Cells Rare Active Medications Generic Name Dose Route Start Last Admin Trade Name Freq PRN Reason Stop Dose Admin Acetaminophen 650 mg 02/24/17 00:00 02/25/17 09:44 Tylenol - PO 650 mg Q4H PRN Administration FEVER OR PAIN Piperacillin Sod/Tazobactam Sod 50 mls @ 100 mls/hr 02/24/17 15:30 02/25/17 09: 40 Zosyn 3.375gm Ivpb (Pre-Docked) IVPB 100 mls/hr Q8H-IV REDDY Administration Protocol Sodium Chloride 1,000 mls @ 150 mls/hr 02/24/17 15:39 02/25/17 13:21 Normal Saline - IV 150 mls/hr ASDIR REDDY Administration Ondansetron HCl 4 mg 02/23/17 01:56 02/25/17 09:45 Zofran - PO 4 mg Q4H PRN Administration NAUSEA Tramadol HCl 50 mg 02/24/17 08:52 Ultram - PO Q8H PRN PAIN ASSESSMENT/PLAN: Pyelonephritis UTI Intractable nausea and vomiting. Plan Continue with IV fluid Repeat UA and protein: cr ratio Antibiotics as per ID Patient could have renal stone which has passed now and has caused pyeloniphritis with rbc and protein in urine. Pararenal and periuretral stranding could be from pyelonephritis. Visit type - Emergency Visit Emergency Visit: Yes ED Registration Date: 02/23/17 Care time: The patient presented to the Emergency Department on the above date and was hospitalized for further evaluation of their emergent condition. - New Patient This patient is new to me today: Yes Date on this admission: 02/25/17 - Critical Care Critical Care patient: No
--- NOTE | 2017-02-25 18:05 | PN ---
Teaching Attending Note Name of Resident: Eric Mantilla (Nephrology) ATTENDING PHYSICIAN STATEMENT I saw and evaluated the patient. I reviewed the resident's note and discussed the case with the resident. I agree with the resident's findings and plan as documented. Nephrology Consult Please see resident note attached. Pt is a 42 year old female with pmhx of asthma who is admitted for treatment of UTI. I was called to evaluate her abnormal urinary sediment and for ct findings of possible nephritis on ct scan. Pt currently feels better. She had dysuria and was diagnosed with a UTI. She took macrobid before admission. PMHx asthma pshx hysterectomy ros right flank pain family hx denies social hx negative Laboratory Tests 02/22/17 02/23/17 02/24/17 20:47 07:00 06:05 WBC 15.8 H 14.2 H Sodium Potassium Chloride Carbon Dioxide BUN Creatinine Urine Color Ltyellow Urine Appearance Slcloudy Urine pH 6.0 Ur Specific [place] 1.010 Urine Protein 1+ H Urine Glucose (UA) 3+ H Urine Ketones Negative Urine Blood Urine Nitrite Urine Bilirubin Urine Urobilinogen Ur Leukocyte Esterase Urine RBC Urine WBC 271 Protein/Creatinin Ratio 02/24/17 02/25/17 02/25/17 06:05 06:00 06:00 WBC 9.4 D Sodium 145 Potassium 3.4 L Chloride 112 H Carbon Dioxide 21 BUN 6 L D 7 Creatinine 0.5 L D 0.6 Urine Color Urine Appearance Urine pH Ur Specific [place] Urine Protein Urine Glucose (UA) Urine Ketones Urine Blood Urine Nitrite Urine Bilirubin Urine Urobilinogen Ur Leukocyte Esterase Urine RBC Urine WBC Protein/Creatinin Ratio 02/25/17 02/25/17 13:45 13:45 WBC Sodium Potassium Chloride Carbon Dioxide BUN Creatinine Urine Color Urine Appearance Urine pH Ur Specific [place] Urine Protein Negative Urine Glucose (UA) Negative Urine Ketones Negative Urine Blood 1+ H Urine Nitrite Negative Urine Bilirubin Negative Urine Urobilinogen Negative Ur Leukocyte Esterase Negative Urine RBC <1 Urine WBC 1 Protein/Creatinin Ratio 0.333 Last Vital Signs Temp Pulse Resp BP Pulse Ox 97.7 F 72 20 119/61 96 02/25/17 14:00 02/25/17 14:00 02/25/17 14:00 02/25/17 14:00 02/25/17 09:00 Current Active Problems Fever (Acute) Intractable vomiting with nausea (Acute) Pyelonephritis (Acute) Sepsis (Acute) UTI (urinary tract infection) (Acute) cardio s1s2 reg pulm clear GI soft bspositive ext right CVA tenderness neuro awake and alert skin neg rash circ pos pulses Impression 1. UTI 2. pyelonephritis 3. asthma 4. nausea and vomiting 5. sepsis Plan - ct findings could be from pyelonephritis - repeat ua reviewed and shows improvement - repeat ua in am - can repeat imaging in the future to evaluate the right kidney - pt feels that her symptoms have improved - discussed with resident and made rounds at bedside Dr Ko
[2017-02-25] MEDS ORDERED: SODIUM CHLORIDE 0.45% 1,000 ML with POTASSIUM CHLORIDE 10 MEQ IVPB SCH (18:15)
[2017-02-25] MEDS: POTASSIUM CHLORIDE 10 MEQ in SODIUM CHLORIDE 0.45% 1,000 ML IVPB SCH (21:22)
[2017-02-26] MEDS: PIPERACILLIN/TAZOB 3.375 GM 50 ML IVPB SCH ×3 (01:53→17:08)
[2017-02-26 08:20] LABS: BASOPHIL 0.5 % (0-2.0); EOSINOPHIL 2.1 % (0-4.5); MCH 28.8 pg (25.7-33.7); MCHC 35.1 g/dl (32.0-36.0); MEAN PLT VOLUME 9.1 fl (7.5-11.1); NEUTROPHILS 70.5 % (42.8-82.8); PLATELET COUNT 245 K/MM3 (134-434); RDW 13.2 % (11.6-15.6); WHITE BLOOD COUNT 9.4 K/mm3 (4.0-10.0)
[2017-02-26 09:12] LABS: ALBUMIN 2.7 g/dl (3.4-5.0); ALK PHOS 88 U/L (45-117); ANION GAP 9 (8-16); BILIRUBIN,TOTAL 0.4 mg/dL (0.2-1.0); CALCIUM 8.7 mg/dL (8.5-10.1); CO2 25 mmol/L (21-32); CREATININE 0.7 mg/dL (0.55-1.02); GLUCOSE,RANDOM 94 mg/dL (74-106); MAGNESIUM 2.2 mg/dL (1.8-2.4); SGOT/AST 12 U/L (15-37); SGPT/ALT 28 U/L (12-78); TOT PROT 6.2 g/dl (6.4-8.2)
--- NOTE | 2017-02-26 09:32 | PN ---
Physical Exam: SUBJECTIVE: Patient seen and examined. She denies flank pain today. States she feels well. Had two loose BMs yesterday and one loose BM today OBJECTIVE: WBC 9.4, low grade temp 99.7 overnight Will start on Acidophilis for loose stools Advised patient that she will need follow up with a CT scan of abdomen/pelvis within 4-6 weeks after d/c to re-evaluate right kidney Patient has a PCP Vital Signs Period Temp Pulse Resp BP Sys/[place] Pulse Ox Last 24 Hr 97.7 F-99.7 F 67-76 18-20 101-125/61-74 GENERAL: The patient is awake, alert, and fully oriented, in no acute distress. HEAD: Normal with no signs of trauma. EYES: PERRL, extraocular movements intact, sclera anicteric, conjunctiva clear. No ptosis. ENT: Ears normal, nares patent, oropharynx clear without exudates, moist mucous membranes. NECK: Trachea midline, full range of motion, supple. LUNGS: Breath sounds equal, clear to auscultation bilaterally, no wheezes, no crackles, no accessory muscle use. HEART: Regular rate and rhythm ABDOMEN: Soft, nontender, nondistended, +right flank pain/tenderness EXTREMITIES: 2+ pulses, warm, well-perfused, no edema. NEUROLOGICAL: Cranial nerves II through XII grossly intact. Normal speech, gait not observed. PSYCH: Normal mood, normal affect. SKIN: Warm, dry, normal turgor, no rashes or lesions noted Laboratory Results - last 24 hr 02/25/17 02/25/17 02/26/17 13:45 13:45 07:45 WBC 9.4 RBC 4.00 Hgb 11.5 Hct 32.8 MCV 82.0 MCHC 35.1 RDW 13.2 Plt Count 245 D MPV 9.1 Neutrophils % 70.5 Lymphocytes % 18.1 Monocytes % 8.8 Eosinophils % 2.1 Basophils % 0.5 Sodium Potassium Chloride Carbon Dioxide Anion Gap BUN Creatinine Creat Clearance w eGFR Random Glucose Calcium Magnesium Total Bilirubin AST ALT Alkaline Phosphatase Total Protein Albumin Urine Color Colorless Urine Appearance Clear Urine pH 6.0 Ur Specific [place] 1.010 Urine Protein Negative Urine Glucose (UA) Negative Urine Ketones Negative Urine Blood 1+ H Urine Nitrite Negative Urine Bilirubin Negative Urine Urobilinogen Negative Ur Leukocyte Esterase Negative Urine RBC <1 Urine WBC 1 Ur Epithelial Cells Rare U Random Total Protein 6 Urine Creatinine 17.8 L Protein/Creatinin Ratio 0.333 02/26/17 07:45 WBC RBC Hgb Hct MCV MCHC RDW Plt Count MPV Neutrophils % Lymphocytes % Monocytes % Eosinophils % Basophils % Sodium 141 Potassium 3.8 Chloride 107 Carbon Dioxide 25 Anion Gap 9 BUN 8 Creatinine 0.7 Creat Clearance w eGFR > 60 Random Glucose 94 Calcium 8.7 Magnesium 2.2 Total Bilirubin 0.4 AST 12 L ALT 28 Alkaline Phosphatase 88 Total Protein 6.2 L Albumin 2.7 L Urine Color Urine Appearance Urine pH Ur Specific [place] Urine Protein Urine Glucose (UA) Urine Ketones Urine Blood Urine Nitrite Urine Bilirubin Urine Urobilinogen Ur Leukocyte Esterase Urine RBC Urine WBC Ur Epithelial Cells U Random Total Protein Urine Creatinine Protein/Creatinin Ratio Active Medications Generic Name Dose Route Start Last Admin Trade Name Freq PRN Reason Stop Dose Admin Acetaminophen 650 mg 02/24/17 00:00 02/25/17 20:59 Tylenol - PO 650 mg Q4H PRN Administration FEVER OR PAIN Piperacillin Sod/Tazobactam Sod 50 mls @ 100 mls/hr 02/24/17 15:30 02/26/17 09: 28 Zosyn 3.375gm Ivpb (Pre-Docked) IVPB 100 mls/hr Q8H-IV REDDY Administration Protocol Potassium Chloride 10 meq/ 1,005 mls @ 50 mls/hr 02/25/17 20:15 02/25/17 21:22 Sodium Chloride IVPB 50 mls/hr Q20H REDDY Administration Ondansetron HCl 4 mg 02/23/17 01:56 02/25/17 09:45 Zofran - PO 4 mg Q4H PRN Administration NAUSEA Tramadol HCl 50 mg 02/24/17 08:52 Ultram - PO Q8H PRN PAIN ASSESSMENT/PLAN: Patient is a 42 year old female with significant past medical history of asthma. She was admitted on 02/23/2017 with nausea vomiting and right sided flank pain. As per Ed notes, patient presented with 1 week of suprapubic pain, fever, and hematuria. On admission patient stated that suprapubic pain radiates to her right flank. She also had progressive abdominal pain that is worse in the suprapubic region but has become more diffuse. She also had an episode of vomiting while in the ED. Her PCP started her on Macrobid for UTI but patient only took once dose before coming in to the ER with worsening symptoms. Imaging: Renal U/S 02/23/2017: Both kidneys appear unremarkable. Normal appearing moderately distended urinary bladder with bilateral uretal jets identified and without evidence of PVR. CT of the abdomen and pelvis with oral contrast 02/25/2017: Mildly enlarged right kidney with perinephric and periureteral stranding suggestive of bilateral arthritis in the right clinical setting. No obstructing stones nor hydronephrosis or hydroureter seen. No stones seen in the urinary bladder. The bladder is non distended limiting its evaluation. ID: Sepsis secondary to UTI/acute pyelonephritis - improving Assessment/Plan: On admission WBC 13.1, Fever 101.F, tachycardia @110 with lactic acidosis Leukocytosis resolved, Low grade temp overnight, no tachycardia, lactic acidosis has resolved Denies right flank pain On IVF NS with 10MEQK Started on Zosyn by ID on 02/24 Urine culture negative, Blood culture negative to date Tmax 101.7F on 02/23, low grade fever overnight CT scan shows mild enlarged right kidney with perinephric and perireteral stranding Renal following Will need repeat CT scan in 4-6 weeks as an outpatient to re-evaluate right kidney Renal Pyelonephritis - acute Assessment/Plan: CT scan shows evidence of mildly enlarged right kidney with perinephric and periureteral stranding On admission she presented with fever, right costovertebral angle pain and nausea and vomiting which is consistent with s/s of phylonephritis initial UA shows +1 proteinuria, +3 glucose, +1 blood, 3+ leuk est., WBC 271 Repeat UA with significant improvement She was initially treated with Ceftriaxone with minimal improvement, started on Zosyn on 02/24 Continue gentle hydration, monitor intake and output, monitor pain Pulmonary: Asthma - chronic/not in acute exacerbation Assessment/Plan: Monitor respiratory status, tolerating room air Albuterol as needed PRN F.E.N. Fluids: NS with 10MEQK @50cc/hr Electrolytes: hypoKalemia resolved Nutrition: regular diet Prophylaxis: GI: Acidophilis DVT: SCDs bilaterally, no AC as pt had recent hematuria and is ambulatory Disposition: Discharge once cleared by ID and renal. Will need repeat CT to re- evaluate right kidney. Full code. Visit type - Emergency Visit Emergency Visit: Yes ED Registration Date: 02/23/17 Care time: The patient presented to the Emergency Department on the above date and was hospitalized for further evaluation of their emergent condition. - New Patient This patient is new to me today: No - Critical Care Critical Care patient: No - Discharge Referral Referred to [facility] Med P.C.: No
[2017-02-26] MEDS: LACTOBACILLUS ACIDOPHILUS 1 EACH TAB (FP) PO SCH (10:16)
--- NOTE | 2017-02-26 10:49 | PN ---
Progress Note, Physician History of Present Illness: feeling much better no new issues had dirrhoea but better now - Current Medication List Current Medications: Active Medications Acetaminophen (Tylenol -) 650 mg PO Q4H PRN PRN Reason: FEVER OR PAIN Last Admin: 02/25/17 20:59 Dose: 650 mg Piperacillin Sod/Tazobactam Sod (Zosyn 3.375gm Ivpb (Pre-Docked)) 50 mls @ 100 mls/hr IVPB Q8H-IV REDDY PRN Reason: Protocol Last Admin: 02/26/17 09:28 Dose: 100 mls/hr Potassium Chloride 10 meq/ (Sodium Chloride) 1,005 mls @ 50 mls/hr IVPB Q20H REDDY Last Admin: 02/25/17 21:22 Dose: 50 mls/hr Lactobacillus Acidophilus (Bacid -) 1 tab PO DAILY REDDY Last Admin: 02/26/17 10:16 Dose: 1 tab Ondansetron HCl (Zofran -) 4 mg PO Q4H PRN PRN Reason: NAUSEA Last Admin: 02/25/17 09:45 Dose: 4 mg Tramadol HCl (Ultram -) 50 mg PO Q8H PRN PRN Reason: PAIN - Objective Vital Signs: Vital Signs Temperature 98.8 F 02/26/17 06:00 Pulse Rate 71 02/26/17 06:00 Respiratory Rate 18 02/26/17 06:00 Blood Pressure 101/62 02/26/17 06:00 O2 Sat by Pulse Oximetry (%) 96 02/25/17 09:00 Constitutional: Yes: No Distress, Calm Cardiovascular: Yes: Regular Rate and Rhythm Respiratory: Yes: Regular, CTA Bilaterally Gastrointestinal: Yes: Normal Bowel Sounds, Soft Musculoskeletal: Yes: WNL Extremities: Yes: WNL Neurological: Yes: Alert, Oriented Psychiatric: Yes: Alert, Oriented Labs: CBC, BMP 02/26/17 07:45 02/26/17 07:45 Assessment/Plan clinically examining and looking at the history and with history of the pain and hematuria i have no doubt patient is having renal colic and pyelo inspite of the ultrasound being normal i am worried patient might have a passed a stone or might be having one Problem (1) Fever Code(s): R50.9 - FEVER, UNSPECIFIED Qualifiers: Fever type: due to other condition Qualified Code(s): R50.81 - Fever presenting with conditions classified elsewhere (2) Intractable vomiting with nausea Code(s): R11.2 - NAUSEA WITH VOMITING, UNSPECIFIED Qualifiers: Vomiting type: unspecified Qualified Code(s): R11.2 - Nausea with vomiting, unspecified (3) Pyelonephritis Code(s): N12 - TUBULO-INTERSTITIAL NEPHRITIS, NOT SPCF ACUTE OR CHRONIC (4) UTI (urinary tract infection) Code(s): N39.0 - URINARY TRACT INFECTION, SITE NOT SPECIFIED (5) Sepsis Code(s): A41.9 - SEPSIS, UNSPECIFIED ORGANISM 6) pyelo of the rt kidney plan wbc normal continue iv abx rest as per primary flank pain improving
--- NOTE | 2017-02-26 11:19 | PN ---
Progress Note, Physician History of Present Illness: Renal f/u No c/o N/V or diarrhea today Blood and urine cultures are negative Afebrile - Current Medication List Current Medications: Active Medications Acetaminophen (Tylenol -) 650 mg PO Q4H PRN PRN Reason: FEVER OR PAIN Last Admin: 02/25/17 20:59 Dose: 650 mg Piperacillin Sod/Tazobactam Sod (Zosyn 3.375gm Ivpb (Pre-Docked)) 50 mls @ 100 mls/hr IVPB Q8H-IV REDDY PRN Reason: Protocol Last Admin: 02/26/17 09:28 Dose: 100 mls/hr Potassium Chloride 10 meq/ (Sodium Chloride) 1,005 mls @ 50 mls/hr IVPB Q20H REDDY Last Admin: 02/25/17 21:22 Dose: 50 mls/hr Lactobacillus Acidophilus (Bacid -) 1 tab PO DAILY REDDY Last Admin: 02/26/17 10:16 Dose: 1 tab Ondansetron HCl (Zofran -) 4 mg PO Q4H PRN PRN Reason: NAUSEA Last Admin: 02/25/17 09:45 Dose: 4 mg Tramadol HCl (Ultram -) 50 mg PO Q8H PRN PRN Reason: PAIN - Objective Vital Signs: Vital Signs Temperature 98.8 F 02/26/17 06:00 Pulse Rate 71 02/26/17 06:00 Respiratory Rate 18 02/26/17 06:00 Blood Pressure 101/62 02/26/17 06:00 O2 Sat by Pulse Oximetry (%) 96 02/25/17 09:00 Constitutional: Yes: No Distress Cardiovascular: Yes: S1, S2 Respiratory: Yes: CTA Bilaterally Gastrointestinal: Yes: Soft. No: Tenderness, Rebound Edema: No Labs: CBC, BMP 02/26/17 07:45 02/26/17 07:45 Assessment/Plan Impression S/P Hypokalemia UTI based on UA with possible pyelonephritis suggested by the Ct Scan though UC negative Asthma S/P nausea and vomiting Plan -Abx as per ID - Continue with present IVF with KCL - Rpt labs in am Dr Quigley
[2017-02-26 14:09] LABS: URINE APPEARANCE CLEAR; URINE BILIRUBIN NEGATIVE (NEGATIVE); URINE COLOR COLORLESS; URINE GLUCOSE (UA) NEGATIVE (NEGATIVE); URINE KETONE NEGATIVE (NEGATIVE); URINE LEUK ESTERASE NEGATIVE (NEGATIVE); URINE NITRITE NEGATIVE (NEGATIVE); URINE PROTEIN NEGATIVE (NEGATIVE); URINE UROBILINOGEN NEGATIVE E.U./dl (0.2-1.0)
[2017-02-26 14:13] LABS: URINE BLOOD 1+ (NEGATIVE)
[2017-02-26 14:14] LABS: URINE RBC 1 /hpf (0-3); URINE WBC 2 /hpf (3-5)
[2017-02-26] MEDS: POTASSIUM CHLORIDE 10 MEQ in SODIUM CHLORIDE 0.45% 1,000 ML IVPB SCH (17:07)
[2017-02-27] MEDS: PIPERACILLIN/TAZOB 3.375 GM 50 ML IVPB SCH ×3 (03:15→17:21)
[2017-02-27 08:34] LABS: BASOPHIL 0.5 % (0-2.0); EOSINOPHIL 2.7 % (0-4.5); MCH 29.2 pg (25.7-33.7); MCHC 35.5 g/dl (32.0-36.0); MEAN CELL VOLUME 82.3 fl (80-96); MEAN PLT VOLUME 9.1 fl (7.5-11.1); NEUTROPHILS 71.1 % (42.8-82.8); PLATELET COUNT 278 K/MM3 (134-434); RDW 13.5 % (11.6-15.6); WHITE BLOOD COUNT 10.8 K/mm3 (4.0-10.0)
[2017-02-27 08:45] LABS: ALBUMIN 2.9 g/dl (3.4-5.0); ANION GAP 14 (8-16); BILIRUBIN,TOTAL 0.7 mg/dL (0.2-1.0); CALCIUM 8.8 mg/dL (8.5-10.1); CO2 22 mmol/L (21-32); CREATININE 0.7 mg/dL (0.55-1.02); GLUCOSE,RANDOM 94 mg/dL (74-106); SGOT/AST 14 U/L (15-37); SGPT/ALT 29 U/L (12-78); TOT PROT 6.5 g/dl (6.4-8.2)
[2017-02-27 08:46] LABS: ALK PHOS 98 U/L (45-117)
[2017-02-27] MEDS: LACTOBACILLUS ACIDOPHILUS 1 EACH TAB (FP) PO SCH (09:06)
[2017-02-27] MEDS: POTASSIUM CHLORIDE 10 MEQ in SODIUM CHLORIDE 0.45% 1,000 ML IVPB SCH ×2 (09:07→12:49)
--- NOTE | 2017-02-27 10:19 | PN ---
Physical Exam: SUBJECTIVE: Patient seen and examined. States she feels better, pain improving and very mild. OBJECTIVE: Slight bump of WBC to 10.8 today, remains afebrile, vitals stable Spoke to patient about importance of repeating CT scan as an outpatient once infection is cleared, she agrees Vital Signs Period Temp Pulse Resp BP Sys/[place] Pulse Ox Last 24 Hr 98.1 F-98.5 F 64-73 18-18 101-125/61-71 98 GENERAL: The patient is awake, alert, and fully oriented, in no acute distress. HEAD: Normal with no signs of trauma. EYES: PERRL, extraocular movements intact, sclera anicteric, conjunctiva clear. No ptosis. ENT: Ears normal, nares patent, oropharynx clear without exudates, moist mucous membranes. NECK: Trachea midline, full range of motion, supple. LUNGS: Breath sounds equal, clear to auscultation bilaterally, no wheezes, no crackles, no accessory muscle use. HEART: Regular rate and rhythm ABDOMEN: Soft, nontender, nondistended, +right flank pain/tenderness EXTREMITIES: 2+ pulses, warm, well-perfused, no edema. NEUROLOGICAL: Cranial nerves II through XII grossly intact. Normal speech, gait not observed. PSYCH: Normal mood, normal affect. SKIN: Warm, dry, normal turgor, no rashes or lesions noted Laboratory Results - last 24 hr 02/26/17 02/27/17 02/27/17 13:30 07:20 07:20 WBC 10.8 H RBC 4.14 Hgb 12.1 Hct 34.0 MCV 82.3 MCHC 35.5 RDW 13.5 Plt Count 278 MPV 9.1 Neutrophils % 71.1 Lymphocytes % 18.1 Monocytes % 7.6 Eosinophils % 2.7 Basophils % 0.5 Sodium 141 Potassium 3.8 Chloride 105 Carbon Dioxide 22 Anion Gap 14 BUN 11 D Creatinine 0.7 Creat Clearance w eGFR > 60 Random Glucose 94 Calcium 8.8 Total Bilirubin 0.7 D AST 14 L ALT 29 Alkaline Phosphatase 98 Total Protein 6.5 Albumin 2.9 L Urine Color Colorless Urine Appearance Clear Urine pH 7.0 Ur Specific [place] 1.010 Urine Protein Negative Urine Glucose (UA) Negative Urine Ketones Negative Urine Blood 1+ H Urine Nitrite Negative Urine Bilirubin Negative Urine Urobilinogen Negative Ur Leukocyte Esterase Negative Urine RBC 1 Urine WBC 2 Ur Epithelial Cells Rare Active Medications Generic Name Dose Route Start Last Admin Trade Name Freq PRN Reason Stop Dose Admin Acetaminophen 650 mg 02/24/17 00:00 02/25/17 20:59 Tylenol - PO 650 mg Q4H PRN Administration FEVER OR PAIN Piperacillin Sod/Tazobactam Sod 50 mls @ 100 mls/hr 02/24/17 15:30 02/27/17 09: 07 Zosyn 3.375gm Ivpb (Pre-Docked) IVPB 100 mls/hr Q8H-IV REDDY Administration Protocol Potassium Chloride 10 meq/ 1,005 mls @ 50 mls/hr 02/25/17 20:15 02/27/17 09:07 Sodium Chloride IVPB 50 mls/hr Q20H REDDY Administration Lactobacillus Acidophilus 1 tab 02/26/17 10:00 02/27/17 09:06 Bacid - PO 1 tab DAILY REDDY Administration Ondansetron HCl 4 mg 02/23/17 01:56 02/25/17 09:45 Zofran - PO 4 mg Q4H PRN Administration NAUSEA Tramadol HCl 50 mg 02/24/17 08:52 Ultram - PO Q8H PRN PAIN ASSESSMENT/PLAN: Patient is a 42 year old female with significant past medical history of asthma. She was admitted on 02/23/2017 with nausea vomiting and right sided flank pain. As per Ed notes, patient presented with 1 week of suprapubic pain, fever, and hematuria. On admission patient stated that suprapubic pain radiates to her right flank. She also had progressive abdominal pain that is worse in the suprapubic region but has become more diffuse. She also had an episode of vomiting while in the ED. Her PCP started her on Macrobid for UTI but patient only took once dose before coming in to the ER with worsening symptoms. Imaging: Renal U/S 02/23/2017: Both kidneys appear unremarkable. Normal appearing moderately distended urinary bladder with bilateral uretal jets identified and without evidence of PVR. CT of the abdomen and pelvis with oral contrast 02/25/2017: Mildly enlarged right kidney with perinephric and periureteral stranding suggestive of bilateral arthritis in the right clinical setting. No obstructing stones nor hydronephrosis or hydroureter seen. No stones seen in the urinary bladder. The bladder is non distended limiting its evaluation. ID: Sepsis secondary to UTI/acute pyelonephritis - improving Assessment/Plan: On admission WBC 13.1, Fever 101.F, tachycardia @110 with lactic acidosis No fevers overnight, no tachycardia, lactic acidosis resolved, WBC mildly elevated + right flank pain but mild On IVF NS with 10MEQK as per renal Started on Zosyn by ID on 02/24 Urine culture negative, Blood culture negative to date Renal Pyelonephritis - acute Assessment/Plan: CT scan shows evidence of mildly enlarged right kidney with perinephric and periureteral stranding On admission she presented with fever, right costovertebral angle pain and nausea and vomiting which is consistent with s/s of phylonephritis initial UA shows +1 proteinuria, +3 glucose, +1 blood, 3+ leuk est., WBC 271, Repeat UA with significant improvement She was initially treated with Ceftriaxone with minimal improvement, started on Zosyn on 02/24 Continue gentle hydration, monitor intake and output, monitor pain Pulmonary: Asthma - chronic/not in acute exacerbation Assessment/Plan: Monitor respiratory status, tolerating room air F.E.N. Fluids: NS with 10MEQK @50cc/hr Electrolytes: hypoKalemia resolved Nutrition: regular diet Prophylaxis: GI: Acidophilis DVT: SCDs bilaterally, no AC as pt had recent hematuria and is ambulatory Disposition: Discharge once cleared by ID and renal. Will need outpatient repeat CT to re-evaluate right kidney once infection clears. Full code. Visit type - Emergency Visit Emergency Visit: Yes ED Registration Date: 02/23/17 Care time: The patient presented to the Emergency Department on the above date and was hospitalized for further evaluation of their emergent condition. - New Patient This patient is new to me today: No - Critical Care Critical Care patient: No - Discharge Referral Referred to [facility] Med P.C.: No
--- NOTE | 2017-02-27 12:26 | PN ---
Progress Note, Physician History of Present Illness: patient feeling well no complaints still having flank pain but much better - Current Medication List Current Medications: Active Medications Acetaminophen (Tylenol -) 650 mg PO Q4H PRN PRN Reason: FEVER OR PAIN Last Admin: 02/25/17 20:59 Dose: 650 mg Piperacillin Sod/Tazobactam Sod (Zosyn 3.375gm Ivpb (Pre-Docked)) 50 mls @ 100 mls/hr IVPB Q8H-IV REDDY PRN Reason: Protocol Last Admin: 02/27/17 09:07 Dose: 100 mls/hr Potassium Chloride 10 meq/ (Sodium Chloride) 1,005 mls @ 50 mls/hr IVPB Q20H REDDY Last Admin: 02/27/17 09:07 Dose: 50 mls/hr Lactobacillus Acidophilus (Bacid -) 1 tab PO DAILY [facility] Last Admin: 02/27/17 09:06 Dose: 1 tab Ondansetron HCl (Zofran -) 4 mg PO Q4H PRN PRN Reason: NAUSEA Last Admin: 02/25/17 09:45 Dose: 4 mg Tramadol HCl (Ultram -) 50 mg PO Q8H PRN PRN Reason: PAIN - Objective Vital Signs: Vital Signs Temperature 98.4 F 02/27/17 10:00 Pulse Rate 75 02/27/17 10:00 Respiratory Rate 18 02/27/17 10:00 Blood Pressure 112/52 02/27/17 10:00 O2 Sat by Pulse Oximetry (%) 98 02/26/17 21:00 Constitutional: Yes: No Distress, Calm Cardiovascular: Yes: Regular Rate and Rhythm Respiratory: Yes: Regular, CTA Bilaterally Gastrointestinal: Yes: Normal Bowel Sounds, Soft Genitourinary: Yes: CVA Tenderness - Right Musculoskeletal: Yes: WNL Extremities: Yes: WNL Neurological: Yes: Alert, Oriented Psychiatric: Yes: Alert, Oriented Labs: CBC, BMP 02/27/17 07:20 02/27/17 07:20 Assessment/Plan clinically examining and looking at the history and with history of the pain and hematuria i have no doubt patient is having renal colic and pyelo inspite of the ultrasound being normal i am worried patient might have a passed a stone or might be having one Problem (1) Fever Code(s): R50.9 - FEVER, UNSPECIFIED Qualifiers: Fever type: due to other condition Qualified Code(s): R50.81 - Fever presenting with conditions classified elsewhere (2) Intractable vomiting with nausea Code(s): R11.2 - NAUSEA WITH VOMITING, UNSPECIFIED Qualifiers: Vomiting type: unspecified Qualified Code(s): R11.2 - Nausea with vomiting, unspecified (3) Pyelonephritis Code(s): N12 - TUBULO-INTERSTITIAL NEPHRITIS, NOT SPCF ACUTE OR CHRONIC (4) UTI (urinary tract infection) Code(s): N39.0 - URINARY TRACT INFECTION, SITE NOT SPECIFIED (5) Sepsis Code(s): A41.9 - SEPSIS, UNSPECIFIED ORGANISM 6) pyelo of the rt kidney plan continue iv abx flank pain better
--- NOTE | 2017-02-27 12:45 | PN ---
Progress Note, Physician History of Present Illness: Renal f/u Tolerating PO intake Has minimal right flank pain - Current Medication List Current Medications: Active Medications Acetaminophen (Tylenol -) 650 mg PO Q4H PRN PRN Reason: FEVER OR PAIN Last Admin: 02/25/17 20:59 Dose: 650 mg Piperacillin Sod/Tazobactam Sod (Zosyn 3.375gm Ivpb (Pre-Docked)) 50 mls @ 100 mls/hr IVPB Q8H-IV REDDY PRN Reason: Protocol Last Admin: 02/27/17 09:07 Dose: 100 mls/hr Potassium Chloride 10 meq/ (Sodium Chloride) 1,005 mls @ 50 mls/hr IVPB Q20H REDDY Last Admin: 02/27/17 09:07 Dose: 50 mls/hr Lactobacillus Acidophilus (Bacid -) 1 tab PO DAILY REDDY Last Admin: 02/27/17 09:06 Dose: 1 tab Ondansetron HCl (Zofran -) 4 mg PO Q4H PRN PRN Reason: NAUSEA Last Admin: 02/25/17 09:45 Dose: 4 mg Tramadol HCl (Ultram -) 50 mg PO Q8H PRN PRN Reason: PAIN - Objective Vital Signs: Vital Signs Temperature 98.4 F 02/27/17 10:00 Pulse Rate 75 02/27/17 10:00 Respiratory Rate 18 02/27/17 10:00 Blood Pressure 112/52 02/27/17 10:00 O2 Sat by Pulse Oximetry (%) 98 02/26/17 21:00 Constitutional: Yes: No Distress Cardiovascular: Yes: S1, S2 Respiratory: Yes: CTA Bilaterally Gastrointestinal: Yes: Soft. No: Tenderness, Rebound Genitourinary: Yes: Other (Mild right CVAT) Edema: No Labs: CBC, BMP 02/27/17 07:20 02/27/17 07:20 Assessment/Plan Impression S/P Hypokalemia UTI based on UA with possible pyelonephritis suggested by the Ct Scan though UC negative while on Abx Asthma Plan -Abx as per ID - Rpt labs in am Dr Quigley
[2017-02-28] MEDS: PIPERACILLIN/TAZOB 3.375 GM 50 ML IVPB SCH ×3 (03:15→17:04)
[2017-02-28 08:01] LABS: BASOPHIL 0.4 % (0-2.0); EOSINOPHIL 2.1 % (0-4.5); MCH 28.5 pg (25.7-33.7); MEAN CELL VOLUME 81.6 fl (80-96); MEAN PLT VOLUME 8.6 fl (7.5-11.1); NEUTROPHILS 72.7 % (42.8-82.8); PLATELET COUNT 298 K/MM3 (134-434); RDW 13.5 % (11.6-15.6); WHITE BLOOD COUNT 11.5 K/mm3 (4.0-10.0)
[2017-02-28 08:15] LABS: ALBUMIN 2.9 g/dl (3.4-5.0); ANION GAP 10 (8-16); BILIRUBIN,TOTAL 0.5 mg/dL (0.2-1.0); CALCIUM 8.7 mg/dL (8.5-10.1); CO2 25 mmol/L (21-32); CREATININE 0.7 mg/dL (0.55-1.02); GLUCOSE,RANDOM 92 mg/dL (74-106); SGOT/AST 18 U/L (15-37); SGPT/ALT 30 U/L (12-78)
[2017-02-28 08:16] LABS: ALK PHOS 106 U/L (45-117); TOT PROT 6.6 g/dl (6.4-8.2)
[2017-02-28] MEDS: POTASSIUM CHLORIDE 10 MEQ in SODIUM CHLORIDE 0.45% 1,000 ML IVPB SCH (08:50)
[2017-02-28 09:28] VITALS: TEMP 97.9
[2017-02-28] MEDS: LACTOBACILLUS ACIDOPHILUS 1 EACH TAB (FP) PO SCH (09:38)
[2017-02-28 15:41] VITALS: BP 101/54; PULSE 17
--- NOTE | 2017-02-28 16:54 | DS ---
Physical Exam: SUBJECTIVE: Patient seen and examined OBJECTIVE: Vital Signs Period Temp Pulse Resp BP Sys/[place] Pulse Ox Last 24 Hr 97.9 F-99.2 F 17- 18-71 100-127/50-77 93-98 PHYSICAL EXAM GENERAL: The patient is awake, alert, and fully oriented, in no acute distress. HEAD: Normal with no signs of trauma. EYES: PERRL, extraocular movements intact, sclera anicteric, conjunctiva clear. ENT: Ears normal, nares patent, oropharynx clear without exudates, moist mucous membranes. NECK: Trachea midline, full range of motion, supple. LUNGS: Breath sounds equal, clear to auscultation bilaterally, no wheezes, no crackles, no accessory muscle use. HEART: Regular rate and rhythm, S1, S2 without murmur, rub or gallop. ABDOMEN: Soft, nontender, nondistended, normoactive bowel sounds, no guarding, no rebound, no hepatosplenomegaly, no masses. EXTREMITIES: 2+ pulses, warm, well-perfused, no edema. NEUROLOGICAL: Cranial nerves II through XII grossly intact. Normal speech, gait not observed. PSYCH: Normal mood, normal affect. SKIN: Warm, dry, normal turgor, no rashes or lesions noted. LABS Laboratory Results - last 24 hr 02/28/17 02/28/17 06:30 06:30 WBC 11.5 H RBC 4.14 Hgb 11.8 Hct 33.8 MCV 81.6 MCHC 35.0 RDW 13.5 Plt Count 298 MPV 8.6 Neutrophils % 72.7 Lymphocytes % 18.3 Monocytes % 6.5 Eosinophils % 2.1 Basophils % 0.4 Sodium 141 Potassium 4.0 Chloride 106 Carbon Dioxide 25 Anion Gap 10 BUN 13 Creatinine 0.7 Creat Clearance w eGFR > 60 Random Glucose 92 Calcium 8.7 Total Bilirubin 0.5 D AST 18 D ALT 30 Alkaline Phosphatase 106 Total Protein 6.6 Albumin 2.9 L HOSPITAL COURSE: Date of Admission:02/23/17 Date of Discharge: 02/28/17 Patient is a 42 year old female with significant past medical history of asthma. She was admitted on 02/23/2017 with nausea, vomiting and right-sided flank pain. As per ED notes, patient presented with 1 week of suprapubic pain, fever, and hematuria. On admission patient stated that suprapubic pain radiated to her right flank. She also had an episode of vomiting while in the ED. Her PCP started her on Macrobid for UTI but patient only took once dose before coming in to the ER with worsening symptoms. Imaging: Renal U/S 02/23/2017: Both kidneys appear unremarkable. Normal appearing moderately distended urinary bladder with bilateral uretal jets identified and without evidence of PVR. CT of the abdomen and pelvis with oral contrast 02/25/2017: Mildly enlarged right kidney with perinephric and periureteral stranding suggestive of bilateral arthritis in the right clinical setting. No obstructing stones nor hydronephrosis or hydroureter seen. No stones seen in the urinary bladder. The bladder is non distended limiting its evaluation. ID: Sepsis secondary to UTI/acute pyelonephritis, sepsis resolved Assessment/Plan: On admission WBC 13.1, Fever 101.F, tachycardia @110 with lactic acidosis Afebrile, no tachycardia, lactic acidosis resolved, WBC mildly elevated + right flank pain but mild On IVF NS with 10MEQK as per renal Started on Zosyn by ID on 02/24 Urine culture negative, Blood culture negative to date Discharged with prescription for cipro for another 14 days of treatment Renal Pyelonephritis Assessment/Plan: CT scan shows evidence of mildly enlarged right kidney with perinephric and periureteral stranding On admission she presented with fever, right costovertebral angle pain and nausea and vomiting which is consistent with s/s of phylonephritis initial UA shows +1 proteinuria, +3 glucose, +1 blood, 3+ leuk est., WBC 271, Repeat UA with significant improvement She was initially treated with Ceftriaxone with minimal improvement, started on Zosyn on 02/24 Continued gentle hydration Pulmonary: Asthma - chronic/not in acute exacerbation Assessment/Plan: Monitor respiratory status, tolerating room air Minutes to complete discharge: 35 Discharge Summary Reason For Visit: PYELONEPHRITIS FEVER INTRACTABLE VOMITING Current Active Problems Fever (Acute) Intractable vomiting with nausea (Acute) Pyelonephritis (Acute) Sepsis (Acute) UTI (urinary tract infection) (Acute) - Instructions Diet, Activity, Other Instructions: A prescription has been sent to your pharmacy for ciprofloxacin, an antibiotic. Take this medication as directed and be sure to finish all the medication. You should follow up with your primary care provider when you finish the antibiotic and have a repeat urinalysis done to make sure you cleared the infection. Return to the emergency department for any new or worsening symptoms. Referrals: Hadley Monge [Primary Care Provider] - Disposition: HOME - Home Medications Comprehensive Discharge Medication List: Ambulatory Orders Ciprofloxacin HCl [Cipro] 500 mg PO BID #28 tablet 02/28/17 This patient is new to me today: Yes Date on this admission: 03/02/17 Emergency Visit: Yes ED Registration Date: 02/23/17 Care time: The patient presented to the Emergency Department on the above date and was hospitalized for further evaluation of their emergent condition. Critical Care patient: No - Discharge Referral Referred to [facility] Med [facility] No
== END 2017-02-28 18:47 | disposition home or self-care (01) | DRG 720 ==
LOC: JER 19:12 → JERBED 02-23 02:03 → UNDOADMIN 02-23 02:09 → JERBED 02-23 02:09 → J5S 02-23 04:55
PROVIDERS: ADMIT Internal Medicine; ATTEND Nurse Practitioner Acute Care
DX: A41.9 Sepsis, unspecified organism (principal); N12 Tubulo-interstitial nephritis, not specified as acute or chronic; J45.909 Unspecified asthma, uncomplicated; E87.6 Hypokalemia; R11.2 Nausea with vomiting, unspecified
CPT/HCPCS: 36415; 74176-TC; 76775-TC; 80048; 80053; 81003; 81015; 82570; 83605; 83735; 84132; 84156; 84703; 85025; 85027; 87040; 87086; 99283-25

== ENCOUNTER 2019-01-14 01:30 | Emergency (ER) | payer SELFPAY ==
[2019-01-14 01:48] VITALS: BP 126/72; PULSE 65; TEMP 98; BMI 29.2
--- NOTE | 2019-01-14 02:06 | PDOC ---
History of Present Illness - General Chief Complaint: Cold Symptoms Stated Complaint: COUGH Time Seen by Provider: 01/14/19 01:55 History Source: Patient Exam Limitations: No Limitations - History of Present Illness Initial Comments: 01/14/19 02:01 HISTORY OF PRESENT ILLNESS: 44-year-old woman presents emergency department for evaluation of moist productive cough, sore throat, body aches and chills for the past 7 days. Patient was concerned that she now has pain in her abdomen which worsens with coughing. Patient denies chest pain, shortness of breath, prescription medication or h/o GERD. No recent travel or sick contacts. PAST MEDICAL HISTORY: Denies past medical history SURGICAL HISTORY: Denies ALLERGIES: No known drug allergies REVIEW OF SYSTEMS General/Constitutional: +fever. Denies weakness, weight change. HEENT: Denies change in vision. Denies ear pain or discharge. +sore throat. Cardiovascular: Denies chest pain or shortness of breath. Respiratory: Moist productive cough. Denies wheezing, or hemoptysis. Gastrointestinal: Denies nausea, vomiting, diarrhea or constipation. Denies rectal bleeding. Genitourinary: Denies dysuria, frequency, or change in urination. Musculoskeletal: +myalgias. Denies neck or back pain. Skin and breasts: Denies rash or easy bruising. Neurologic: Denies headache, vertigo, loss of consciousness, or loss of sensation. Psychiatric: Denies depression or anxiety. Endocrine: Denies increased thirst. Denies abnormal weight change. Hematologic/Lymphatic: Denies anemia, easy bleeding, or history of blood clots. Allergic/Immunologic: Denies hives or skin allergy. Denies latex allergy. PHYSICAL EXAM General Appearance: Well-appearing, appropriately dressed. No apparent distress , no intoxication. HEENT: EOMI, PERRLA, normal voice, TMs retracted bilaterally. No conjunctival pallor. No photophobia, scleral icterus. Oropharynx erythematous without lesions or exudate. Cobblestoning noted in the posterior. No nasal discharge present. Neck: Supple. Trachea midline. No tenderness, rigidity, carotid bruit, stridor , or thyromegaly. Nontender anterior cervical lymphadenopathy present. Respiratory/Chest: Lungs CTAB. No shortness of breath, chest tenderness, respiratory distress, accessory muscle use. No crackles, rales, rhonchi, stridor , wheezing, dullness Cardiovascular: RRR. S1, S2. No JVD, murmur, bradycardia, tachycardia. Vascular Pulses: Dorsalis-Pedis (R): 2+, Dorsalis-Pedis (L): 2+ Gastrointestinal/Abdominal: Normal bowel sounds. Abdomen soft, non-distended. No tenderness or rebound tenderness. No organomegaly, pulsatile mass, guarding, hernia, hepatomegaly, splenomegaly. Musculoskeletal/Extremities: Normal inspection. FROM of all extremities, normal capillary refill. Pelvis Stable. No CVA tenderness. No tenderness to extremities, pedal edema, swelling, erythema or deformity. Integumentary: Appropriate color, dry, warm. No cyanosis, erythema, jaundice or rash Neurologic: battery assembler plastic II-XII intact. Fully oriented, alert. Appropriate mood/affect. Motor strength 5/5. No appreciable EOM palsy, facial droop or sensory deficit. Past History - Past Medical History Allergies/Adverse Reactions: Allergies Allergy/AdvReac Type Severity Reaction Status Date / Time No Known Allergies Allergy Verified 01/14/19 01:48 Home Medications: Ambulatory Orders Ciprofloxacin HCl [Cipro] 500 mg PO BID #28 tablet 02/28/17 Benzonatate [Tessalon Pearls -] 200 mg PO TID #42 cap 01/14/19 Asthma: Yes COPD: No - Suicide/Smoking/Psychosocial Hx Smoking History: Never smoked Have you smoked in the past 12 months: No Hx Alcohol Use: No Drug/Substance Use Hx: No Substance Use Type: None Hx Substance Use Treatment: No *Physical Exam - Vital Signs Last Vital Signs Temp Pulse Resp BP Pulse Ox 98.0 F 65 18 126/72 95 01/14/19 01:45 01/14/19 01:45 01/14/19 01:45 01/14/19 01:45 01/14/19 01:45 Medical Decision Making - Medical Decision Making 01/14/19 02:03 A/P: 44-year-old woman with 1 week of upper respiratory illness Likely viral in nature Lungs clear to auscultation bilaterally I will discharge the patient home with supportive treatment of upper respiratory infection. I will and Tessalmelvina Perles as prescription to help patient with her coughing. Patient verbalizes understanding of discharge instructions and was satisfied with the care received here today. *DC/Admit/Observation/Transfer Diagnosis at time of Disposition: Upper respiratory infection Qualifiers: URI type: unspecified URI Qualified Code(s): J06.9 - Acute upper respiratory infection, unspecified - Discharge Dispostion Disposition: HOME Condition at time of disposition: Stable Decision to Admit order: No - Prescriptions Prescriptions: Benzonatate [Tessalon Pearls -] 200 mg PO TID #42 cap - Referrals Referrals: Hadley Monge [Primary Care Provider] - - Patient Instructions Printed Discharge Instructions: DI for Viral Upper Respiratory Infection -- Adult Additional Instructions: Rest, drink lots of fluids: Teas, water, soups, Pedialyte Saltwater gargles Steamy showers/seem to face break up mucus Avoid contact with others until fevers and cough resolved Lots of handwashing and good hygiene Continue wkyo-ggr-silxexm medications for symptomatic relief Tylenol or Motrin for fever and pain Followup with private physician in one to 2 days as needed Return to emergency department for worsened symptoms, fevers, dehydration El descluanneosukhjinderos lquidos: ts, agua, sopas, Pedialyte grgaras de agua salada Duchas Steamy / parecen enfrentar aflojar la mucosidad Evite el contacto con otras personas hasta que la fiebre y la tos resueltos Un montn de lavado de [place] y la higiene Continuar qywt-ygw-jbeipua medicamentos para el alivio sintomtico Tylenol o Motrin para la fiebre y el dolor Followup con el mdico privado en [place] o 2 cooper segn sea necesario Regresar a urgencias por sntomas empeoraron, fiebres, deshidratacin Print Language: TAIWANESE - Post Discharge Activity
== END 2019-01-14 02:28 | disposition home or self-care (01) ==
LOC: JER 01:30
DX: J06.9 Acute upper respiratory infection, unspecified (principal)
CPT/HCPCS: 99281-25

== ENCOUNTER 2019-01-15 17:27 | Emergency (ER) | payer SELFPAY ==
[2019-01-15 17:40] VITALS: BP 135/59; PULSE 75; TEMP 98.1; BMI 28.2
--- NOTE | 2019-01-15 17:40 | PDOC ---
Rapid Medical Evaluation Chief Complaint: Cold Symptoms Time Seen by Provider: 01/15/19 17:38 Medical Evaluation: Allergies Allergy/AdvReac Type Severity Reaction Status Date / Time No Known Allergies Allergy Verified 01/14/19 01:48 01/15/19 17:38 I have performed a brief in-person evaluation of this patient. The patient presents with a chief complaint of:cough x 1 week, now w/ upper back pain w/ cough. No sob, f/c. H/o asthma. No wheezing Pertinent physical exam findings:Stable w/ clear chest/lungs I have ordered the following:nothing The patient will proceed to the ED for further evaluation. Discharge Disposition - Diagnosis Cough - Referrals - Patient Instructions - Post Discharge Activity
[2019-01-15] MEDS ORDERED: ALBUTEROL SO4 2.5/IPRATROPIUM 0.5 INH SOL 3 ML VIAL.NEB. NEB ONE ×2 (18:29→18:36)
--- NOTE | 2019-01-15 18:29 | PDOC ---
History of Present Illness - General Chief Complaint: Cold Symptoms Stated Complaint: COUGH Time Seen by Provider: 01/15/19 17:38 History Source: Patient Exam Limitations: No Limitations - History of Present Illness Initial Comments: 01/15/19 18:31 Patient was seen here last night and treated for a viral upper respiratory infection and prescribed Tessalon Perles. Patient states has progressively worsened where she now she has some shortness of breath, wheezing, and inability to sleep secondary to severe cough. States is producing thick yellow white phlegm, has felt fevers and chills. Timing/Duration: reports: getting worse, week Severity: reports: moderate Modifying Factors: improves with: coughing Associated Symptoms: reports: chest pain/soreness, cough, fever/chills, nasal congestion, shortness of breath, wheezing (pleuritic chest pain worse with deep inspiration) Past History - Travel Traveled outside of the country in the last 30 days: No Close contact w/someone who was outside of country & ill: No - Past Medical History Allergies/Adverse Reactions: Allergies Allergy/AdvReac Type Severity Reaction Status Date / Time No Known Allergies Allergy Verified 01/14/19 01:48 Home Medications: Ambulatory Orders Albuterol Sulfate Inhaler - [Ventolin HFA Inhaler -] 1 - 2 inh PO Q4H #1 inhaler 01/15/19 Azithromycin [Zithromax -] 250 mg PO UTDICT #6 tab 01/15/19 predniSONE [Deltasone -] 20 mg PO BID #8 tablet 01/15/19 Asthma: Yes COPD: No - Immunization History Immunization Up to Date: Yes - Suicide/Smoking/Psychosocial Hx Smoking History: Never smoked Have you smoked in the past 12 months: No Hx Alcohol Use: No Drug/Substance Use Hx: No Substance Use Type: None Hx Substance Use Treatment: No Review of Systems - Review of Systems Able to Perform ROS?: Yes Is the patient limited Amharic proficient: Yes Constitutional: Yes: Symptoms Reported, See HPI, Fever, Loss of Appetite, Malaise HEENTM: Yes: Symptoms Reported, See HPI, Nose Congestion Respiratory: Yes: Cough, Shortness of Breath Musculoskeletal: Yes: Symptoms Reported Neurological: Yes: Symptoms reported, See HPI, Headache All Other Systems: Reviewed and Negative *Physical Exam - Vital Signs Last Vital Signs Temp Pulse Resp BP Pulse Ox 98.1 F 75 18 135/59 L 97 01/15/19 17:38 01/15/19 17:38 01/15/19 17:38 01/15/19 17:38 01/15/19 17:38 - Physical Exam General Appearance: Yes: Nourished, Appropriately Dressed, Apparent Distress, Mild Distress HEENT: positive: TMs Normal (congested but landmarks easily visualized, has some scarring noted on bilateral TMs), Pharyngeal Erythema (the posterior sinus drainage noted), Nasal Congestion, Rhinorrhea Neck: positive: Supple, Lymphadenopathy (R), Lymphadenopathy (L) Respiratory/Chest: negative: Lungs Clear (coarse inspiratory and expiratory breath sounds, mildly diminished) Extremity: positive: Normal Capillary Refill, Normal Inspection, Normal Range of Motion Integumentary: positive: Normal Color, Dry, Warm, Pale Neurologic: positive: ring striker II-XII NML intact, Fully Oriented, Alert, Normal Mood/ Affect, Normal Response, Motor Strength 5/5 Progress Note - Progress Note Progress Note: Upper respiratory infection, chest x-ray shows possible early right lower lobe infiltrate, will treat with Z-Mir, and proventil HFA *DC/Admit/Observation/Transfer Diagnosis at time of Disposition: Upper respiratory tract infection Qualifiers: URI type: unspecified URI Qualified Code(s): J06.9 - Acute upper respiratory infection, unspecified - Discharge Dispostion Disposition: HOME Condition at time of disposition: Stable Decision to Admit order: No - Referrals - Patient Instructions Printed Discharge Instructions: DI for Acute Bronchitis Additional Instructions: Rest, drink lots of fluids: Teas, water, soups, Pedialyte Saltwater gargles Steamy showers/seem to face break up mucus Avoid contact with others until fevers and cough resolved Lots of handwashing and good hygiene Continue shjl-fsy-duxjjzl medications for symptomatic relief Tylenol or Motrin for fever and pain Continue albuterol nebulizers every 4-6 hours for the next 2 days then as needed for continued cough Prednisone as directed until completed Azithromycin as directed Followup with private physician in one to 2 days Return to emergency department / pediatric hospital for worsened symptoms, fevers, dehydration - Post Discharge Activity Forms/Work/School Notes: Back to Work
[2019-01-15] MEDS ORDERED: predniSONE 20 MG TABLET (UD) PO ONE (18:30)
[2019-01-15] MEDS ORDERED: predniSONE 20 MG TABLET (UD) ONE (18:35)
== END 2019-01-15 19:18 | disposition home or self-care (01) ==
LOC: JERFT 17:27
PROC: 3E0F7GC Introduction of Other Therapeutic Substance into Respiratory Tract, Via Natural or Artificial Opening (ICD-10-PCS; principal; 2019-01-15)
DX: J06.9 Acute upper respiratory infection, unspecified (principal)
CPT/HCPCS: 71046-TC-FY; 99281-25